=== PATIENT | male | born 1930 | race Caucasian/White ===

== ENCOUNTER 2016-07-26 14:45 | Inpatient (IN) | payer MEDICARE, MEDICAID ==
[~2016-07-26] VITALS: Ht 175.3 cm; Wt 88.9 kg
[~2016-07-26 14:45] MED LIST: ACET325T53 GT; BISA10SU12 RC; CALC-555 GT; CRAN425C GT; DOXA1TAB GT; GUAI-965 GT; MAGN400O4 GT; MULT237L4 GT; NA P133E RC; QUET25TA GT; RIVA20TA GT; SIMV20TA2 GT; SULF1TAB48 PO; VALP250S12 GT
[2016-07-26] MEDS ORDERED: ALBU2.5V38 IH (15:31)
[2016-07-26] MEDS ORDERED: LACT-209 PO (15:31)
[2016-07-26 15:50] LABS: CREATININE 0.7 mg/dL (0.6-1.3); POTASSIUM 4.2 mmol/L (3.5-5.1)
[2016-07-26 15:52] LABS: BASOPHILS % (AUTO) 0.4 % (0.0-2.0); EOSINOPHILS # (AUTO) 0.1 K/uL (0.0-0.7); EOSINOPHILS % (AUTO) 0.5 % (0.0-7.0); HEMOGLOBIN 12.8 G/DL (14.0-18.0); LYMPHOCYTES # (AUTO) 1.1 K/UL (0.8-4.8); MEAN CORPUSCULAR HEMOGLOBIN 31.5 UUG (27.0-31.0); MEAN CORPUSCULAR HGB CONC 33 g/dL (32.0-37.0); MEAN CORPUSCULAR VOLUME 95.7 FL (82.0-92.0); MONOCYTES # (AUTO) 1.5 K/UL (0.1-1.30); NEUTROPHILS % (AUTO) 75.1 % (38.5-71.5); PLATELET COUNT (AUTO) 182 K/UL (150-450); RED BLOOD CELL COUNT(AUTO) 4.07 MIL/UL (4.7-6.1); WHITE BLOOD COUNT (AUTO) 10.7 K/UL (4.0-11.2)
[2016-07-26] MEDS ORDERED: IMIPENEM/CILASTATIN SODIUM 500 MG in IV NORMAL SALINE 100 ML IV ONE (16:00)
[2016-07-26 16:02] LABS: BILIRUBIN,DIRECT 0.1 mg/dL (0.0-0.2); BILIRUBIN,TOTAL 0.6 mg/dL (0.2-1.0); TOTAL PROTEIN, SERUM 6.9 g/dL (6.4-8.2)
[2016-07-26] MEDS ORDERED: ALBUTEROL SULFATE 2.5 MG/3 ML NEBU NEB ONE (16:15)
[2016-07-26] MEDS ORDERED: IPRATROPIUM BROMIDE 0.5 MG/2.5 ML NEBU NEB ONE (16:15)
[2016-07-26] MEDS ORDERED: IPRATROPIUM BROMIDE 0.5 MG/2.5 ML NEBU ONE (16:26)
[2016-07-26] MEDS ORDERED: ALBUTEROL SULFATE 2.5 MG/ 0.5 ML NEBU ONE (16:27)
[2016-07-26] MEDS ORDERED: MEROPENEM 500 MG in IV NORMAL SALINE 100 ML IV ONE (16:30)
[2016-07-26] MEDS ORDERED: MEROPENEM 500 MG VIAL IV ONE (16:35)
[2016-07-26 17:27] LABS: *BILIRUBIN,URIN NEGATIVE (NEGATIVE); *BLOOD, URINE 2+ (NEGATIVE); *CLARITY,URINE CLOUDY (CLEAR); *COLOR,URINE YELLOW (YELLOW); *KETONES,URINE NEGATIVE (NEGATIVE); LEUKOCYTE ESTERASE ,URINE 3+ (NEGATIVE); NITRITE, URINE NEGATIVE (NEGATIVE); PH,URINE 7.5 (5.0-8.0); UGLUCOSE NEGATIVE (NEGATIVE)
[2016-07-26 17:44] LABS: *PROTEIN,URINE 3+ (NEGATIVE)
[2016-07-26 17:47] VITALS: BP 115/77
[2016-07-26 17:47] LABS: BACTERIA,URINE MA /HPF (NONE SEEN); RBC,URINE 80-100 /HPF (0-3); SQUAMOUS EPITHELIAL CELL,UR FEW /HPF (NONE SEEN); WBC,URINE TNTC /HPF (0-3)
[2016-07-26 17:48] LABS: TRIPLE PHOSPHATE CRYSTAL,UR MODERATE /HPF (NONE SEEN)
[2016-07-26] MEDS ORDERED: Z GUARD REMEDY PASTE 57 GM TUBE TOP PRN (19:00)
--- NOTE | 2016-07-26 19:00 | NUR ---
Report was received by DARRIAN Govea. No s/s of distress noted. V/S WNL. Called Dr. Rodrigues for order, did not call back. Iv intact. Patient came with a F/C, urine and yellow. G-tube on place. Report given to DARRIAN Baxter.
[2016-07-26 20:00] VITALS: BP 131/74
--- NOTE | 2016-07-26 20:00 | NUR ---
RECEIVED PATIENT NON VERBAL,LETHARGIC,TEMP 98.8, SPO2 96% ON O2 2 L/M VIA N/C,SR ON TELE RATE 85,PATIENT CONGESTED, COUGHING PRODUCTIVELY,SUCTION, ORAL CARE GIVEN, PATIENT RECEIVED BREATHING TX AND MERREM IV ABX. INFORMED DURING SHIFT REPORT THAT SEPSIS PROTOCOL WAS NOT NEEDED TO BE INITIATED IN ER. NOTIFIED DR. SWAN THAT PATIENT DID NOT RECEIVE ANY IVF IN ER. RECEIVED NEW ORDER FOR PATIENT TO START NS @50 CC/HR. ALL NEEDS ATTENDED. WILL CONTINUE TO MONITOR.
[2016-07-26] MEDS: IV NS 1000 ML 1,000 ML IV PRN (21:19)
[2016-07-26] MEDS: MEROPENEM 0.5 G in IV NORMAL SALINE 50 ML IV SCH (22:14)
[2016-07-27] VITALS (7 sets, daily range): BP systolic 97–125; BP diastolic 48–78
[2016-07-27] MEDS: IPRATROPIUM BROMIDE 0.5 MG/2.5 ML NEBU NEB SCH ×5 (00:01→19:23)
[2016-07-27] MEDS: ALBUTEROL SULFATE 2.5 MG/ 0.5 ML NEBU NEB SCH ×5 (00:05→19:23)
[2016-07-27] MEDS ORDERED: ALBUTEROL SULFATE 2.5 MG/3 ML NEBU ONE (00:08)
[2016-07-27] MEDS ORDERED: IPRATROPIUM BROMIDE 0.5 MG/2.5 ML NEBU ONE (00:09)
[2016-07-27] MEDS ORDERED: ACETAMINOPHEN 325 MG TABLET ONE (00:11)
[2016-07-27] MEDS ORDERED: ACETAMINOPHEN 650 MG/20.3 ML LIQUID UDC ONE (00:16)
--- NOTE | 2016-07-27 00:45 | NUR ---
TEMP ELEVATED 101,BP 125/78,HEART RATE 78 BPM NSR,TYLENOL 650 MG LIQUID GIVEN VIA G TUBE.COOLING MEASURE PROVIDED,TURN AND REPOSITION,MARS CATHETER DRAINAGE ADEQUATE URINE OUT PUT,BREATHING TREATMENT GIVEN BY R.T.WITH GOOD RESULT.
[2016-07-27] MEDS: ACETAMINOPHEN 650 MG/20.3 ML LIQUID UDC GT PRN ×2 (00:51→13:35)
[2016-07-27] MEDS ORDERED: IPRATROPIUM BROMIDE 0.5 MG/2.5 ML NEBU NEB SCH (01:30)
[2016-07-27] MEDS ORDERED: ALBUTEROL SULFATE 2.5 MG/ 0.5 ML NEBU NEB SCH (01:30)
--- NOTE | 2016-07-27 02:00 | NUR ---
TEMP 98.8,PATIENT SLEEP INTERMITTENTLY,CONTINUE CLOSELY MONITOR.
--- NOTE | 2016-07-27 06:00 | NUR ---
NO ACUTE DISTRESS NOTED, PATIENT MORE ALERT,VERBALLY RESPONSE. FOLLOW SIMPLE INSTRUCTIONS,SR ON MONITOR,SPONGE BATH GIVEN PATIENT APPEARS COMFORTABLE.
[2016-07-27] MEDS: MEROPENEM 0.5 G in IV NORMAL SALINE 50 ML IV SCH ×3 (06:02→21:27)
[2016-07-27 07:51] LABS: BILIRUBIN,TOTAL 0.6 mg/dL (0.2-1.0); CREATININE 0.7 mg/dL (0.6-1.3); MAGNESIUM 2.1 mg/dL (1.8-2.4); PHOSPHOROUS 2.9 mg/dL (2.5-4.9)
[2016-07-27 07:53] LABS: BASOPHILS % (AUTO) 0.4 % (0.0-2.0); EOSINOPHILS # (AUTO) 0.1 K/uL (0.0-0.7); EOSINOPHILS % (AUTO) 1.1 % (0.0-7.0); HEMOGLOBIN 11.5 G/DL (14.0-18.0); LYMPHOCYTES # (AUTO) 1.1 K/UL (0.8-4.8); LYMPHOCYTES % (AUTO) 9.5 % (20.5-51.5); MEAN CORPUSCULAR HEMOGLOBIN 31.9 UUG (27.0-31.0); MEAN CORPUSCULAR HGB CONC 33 g/dL (32.0-37.0); MEAN CORPUSCULAR VOLUME 95.7 FL (82.0-92.0); MONOCYTES # (AUTO) 1.4 K/UL (0.1-1.30); MONOCYTES % (AUTO) 11.9 % (0.0-11.0); NEUTROPHILS # (AUTO) 9.2 K/UL (1.8-8.9); NEUTROPHILS % (AUTO) 77.1 % (38.5-71.5); PLATELET COUNT (AUTO) 175 K/UL (150-450); WHITE BLOOD COUNT (AUTO) 11.8 K/UL (4.0-11.2)
[2016-07-27 07:57] LABS: HEMATOCRIT 34.6 % (40-50); RED BLOOD CELL COUNT(AUTO) 3.61 MIL/UL (4.7-6.1)
--- NOTE | 2016-07-27 08:00 | NUR ---
awake, oriented to self only, follows commands, on 2l/nc 02, no distress noted, Tele SR 80's, GT in place- checked residual- none obtained, tube feeding infusing at 65 ml/hr, kept head of bed elevated at all times, aspiration precautions observed, respiratory therapist here for HHN treatment, repositioned to ride side with heels off loaded with pillows, no redness noted. left ear lobe with dark area- mepilex foam dsg applied, fall prec. observed, bed alarm on
[2016-07-27] MEDS ORDERED: GUAIFENESIN/DEXTROMETHORPHAN 5 ML UDC GT PRN (08:45)
[2016-07-27] MEDS ORDERED: ACETAMINOPHEN 325 MG TABLET GT PRN (08:45)
[2016-07-27] MEDS ORDERED: MAGNESIUM HYDROXIDE 30 ML LIQUID UDC GT PRN (08:45)
[2016-07-27] MEDS ORDERED: BISACODYL 10 MG SUPP.RECT RC PRN (08:45)
[2016-07-27] MEDS ORDERED: FLEET ENEMA 133 ML BOTTLE RC PRN (08:45)
[2016-07-27] MEDS: QUETIAPINE FUMARATE 25 MG TABLET GT SCH ×3 (09:18→21:25)
[2016-07-27] MEDS: CALCIUM CARB/VITAMIN D 500MG-200UNITS TABLET GT SCH (09:19)
[2016-07-27] MEDS: MULTIVIT, IRON, MIN NO. 8, FA TABLET GT SCH (09:19)
[2016-07-27] MEDS: VALPROIC ACID 250 MG/5 ML LIQUID UDC GT SCH ×2 (13:26→21:25)
--- NOTE | 2016-07-27 13:38 | NUR ---
moaning- states has pain but unable to scale- medicated with [id number] mg via GT- checked residual- none obtained
--- NOTE | 2016-07-27 14:30 | NUR ---
calm and resting, no distress noted, tolerating tube fdg well, repositioned q 2h with heels off loaded with pillows, kept clean and dry, wound on buttocks done this am
[2016-07-27] MEDS: RIVAROXABAN 10 MG TABLET GT SCH (17:04)
[2016-07-27] MEDS: IV NS 1000 ML 1,000 ML IV PRN (18:33)
[2016-07-27] MEDS: FIBERSOURCE HN 1000ML LIQUID GT PRN (18:35)
--- NOTE | 2016-07-27 18:47 | NUR ---
no distress noted, tolerating tube fdg well, no residual noted this shift, no diarrhea, no n/v, aspiration precaution observed, head of bed elevated at all times, all needs attended and met, bed alarm on, repositioned q 2h with heels off loaded with pillows at all times, no redness noted on both heels
--- NOTE | 2016-07-27 20:00 | NUR ---
PATIENT RESTING WELL, NO ACUTE DISTRESS,AFEBRILE,NSR ON TELE MONITOR ,BREATHING TREATMENT AND SUCTION GIVEN BY R.T.,TUBE FEEDING STOP FROM 1900 UNTIL 2300 ,NO RESIDUAL,PATIENT ON 1 ST STEP AIR MATTRESS, TURN AND REPOSITION Q 2H,HEELS OFF LOADING ,HOB ELEVATED,CONTINUE O2 2L/M, O2 SAT 96%.
[2016-07-27] MEDS: SIMVASTATIN 20 MG TABLET GT SCH (21:25)
[2016-07-28 00:05] VITALS: BP 100/55
[2016-07-28] MEDS: ALBUTEROL SULFATE 2.5 MG/ 0.5 ML NEBU NEB SCH ×4 (00:30→19:48)
[2016-07-28] MEDS: IPRATROPIUM BROMIDE 0.5 MG/2.5 ML NEBU NEB SCH ×4 (00:30→19:48)
--- NOTE | 2016-07-28 00:30 | NUR ---
BREATHING TREATMENT AND SUCTION BY R.T.,NO DISTRESS NOTED.
[2016-07-28 04:00] VITALS: BP 105/56
[2016-07-28] MEDS: MEROPENEM 0.5 G in IV NORMAL SALINE 50 ML IV SCH ×3 (06:01→22:30)
--- NOTE | 2016-07-28 06:58 | NUR ---
PATIENT SLEEP WELL, BP STABLE AND WNL,SR,SB ON TELEMONITOR,ADEQUATE URINE OUT PUT,TOLERATED G TUBE FEEDING WELL,NO RESIDUAL.
[2016-07-28 08:00] VITALS: BP 99/54
--- NOTE | 2016-07-28 08:00 | NUR ---
awake alert, oriented to self, follows simple commands, head of bed elevated, on 3l/nc, tele sr 60's,has occasional cough, suctioned orally of thin whitish phlegm, oral care given, tube feeding infusing at 65ml/hr, no residual noted, aspiration precautions observed, repositioned with heels offloaded with pillows, no redness on heels noted, needs attended.
[2016-07-28] MEDS: VALPROIC ACID 250 MG/5 ML LIQUID UDC GT SCH ×2 (08:41→21:03)
[2016-07-28] MEDS: CALCIUM CARB/VITAMIN D 500MG-200UNITS TABLET GT SCH (08:41)
[2016-07-28] MEDS: MULTIVIT, IRON, MIN NO. 8, FA TABLET GT SCH (08:41)
[2016-07-28] MEDS: QUETIAPINE FUMARATE 25 MG TABLET GT SCH ×3 (08:42→21:04)
[2016-07-28] MEDS ORDERED: DOXAZOSIN 1 MG TABLET GT SCH (09:00)
--- NOTE | 2016-07-28 10:00 | NUR ---
resting in bed, calm, GT site red and with hard area around the site, no drainage noted, cleansed with NS and pat dry, new dsg applied, Abdomen soft, no distention noted, kept clean and dry, no BM, no n/v, tolerating tube fdg
[2016-07-28 11:47] VITALS: BP 105/57
--- NOTE | 2016-07-28 12:20 | NUR ---
Dr Colbert here- informed of the redness and hard area at GT site
--- NOTE | 2016-07-28 13:00 | NUR ---
downgraded to tele status
[2016-07-28] MEDS: IV NS 1000 ML 1,000 ML IV PRN (15:43)
[2016-07-28] MEDS: FIBERSOURCE HN 1000ML LIQUID GT PRN (15:44)
[2016-07-28 16:13] VITALS: BP 106/69
[2016-07-28] MEDS: RIVAROXABAN 10 MG TABLET GT SCH (18:14)
--- NOTE | 2016-07-28 20:00 | NUR ---
PATIENT AWAKE, ALERT,CONFUSED,VERBALLY RESPONSIVE,VITAL SIGNS STABLE AND WNL, ON O2 2L/M VIA N/C NO S/S OF PAIN,BREATHING TREATMENT AND SUCTION PER RT.SR ON MONITOR,ADEQUATE URINE OUT PUT,CONTINUE CLOSELY MONITOR,BED ALARM ON,SAFETY PRECAUTIONS.
[2016-07-28] MEDS: SIMVASTATIN 20 MG TABLET GT SCH (21:05)
--- NOTE | 2016-07-28 22:30 | NUR ---
TRANSFER CARE TO [facility],REPORT GIVEN.
--- NOTE | 2016-07-28 23:00 | NUR ---
RECEIVED REPORT FROM DARRIAN ESCOBAR. PT IN BED RESTING WITH EYES CLOSED. NO ACUTE DISTRESS NOTED. EVEN AND NONLABORED BREATHING OBSERVED, ON 3.5L O2 VIA NC. IV INTACT, IVF INFUSING ORDERED. REPOSITIONED FOR COMFORT. GT-FEEDING RESUMED AT 65CC/HR, NO RESIDUAL AT THIS TIME. WILL CONTINUE PLAN OF CARE. WILL CONTINUE MONITORING.
[2016-07-29] VITALS: BP 98/54
[2016-07-29] MEDS: ALBUTEROL SULFATE 2.5 MG/ 0.5 ML NEBU NEB SCH ×4 (00:30→19:51)
[2016-07-29] MEDS: IPRATROPIUM BROMIDE 0.5 MG/2.5 ML NEBU NEB SCH ×4 (00:31→19:51)
[2016-07-29 04:00] VITALS: BP 119/66
[2016-07-29] MEDS: MEROPENEM 0.5 G in IV NORMAL SALINE 50 ML IV SCH ×3 (05:29→22:00)
--- NOTE | 2016-07-29 06:35 | NUR ---
END OF SHIFT NOTE: PT SLEPT WELL. NO ACUTE DISTRESS PER SHIFT. SUCTIONED PRN WITH THIN WHITE PHLEMG, AND REMAINS ON SCHEDULED BREATHING TX. NO S/S OF PAIN OR UNEASINESS OBSERVED. ON 3L O2 VIA NC WITH SAT WNL. GT FEEDING INFUSING ORDERED, TOLERATING WELL. NO RESIDUAL THIS AM. ON TELE, SR ,SINUS EMILEE ON THE MONITOR, HR-58. ALL NEEDS MET. KEPT CLEAN AND DRY. CALL LIGHT IN REACH AND SAFETY MAINTAINED.
[2016-07-29 07:41] LABS: BILIRUBIN,TOTAL 0.4 mg/dL (0.2-1.0); CREATININE 0.7 mg/dL (0.6-1.3); MAGNESIUM 2.1 mg/dL (1.8-2.4); PHOSPHOROUS 3.3 mg/dL (2.5-4.9); POTASSIUM 4.2 mmol/L (3.5-5.1); TOTAL PROTEIN, SERUM 6.3 g/dL (6.4-8.2)
[2016-07-29 08:02] LABS: BASOPHILS # (AUTO) 0.1 K/uL (0.0-8.0); BASOPHILS % (AUTO) 0.6 % (0.0-2.0); EOSINOPHILS # (AUTO) 0.5 K/uL (0.0-0.7); EOSINOPHILS % (AUTO) 5.6 % (0.0-7.0); HEMATOCRIT 32.7 % (40-50); HEMOGLOBIN 11.6 G/DL (14.0-18.0); LYMPHOCYTES # (AUTO) 1.5 K/UL (0.8-4.8); MEAN CORPUSCULAR HEMOGLOBIN 34.2 UUG (27.0-31.0); MEAN CORPUSCULAR HGB CONC 35 g/dL (32.0-37.0); MEAN CORPUSCULAR VOLUME 96.9 FL (82.0-92.0); MONOCYTES % (AUTO) 11.2 % (0.0-11.0); NEUTROPHILS # (AUTO) 5.8 K/UL (1.8-8.9); NEUTROPHILS % (AUTO) 65.6 % (38.5-71.5); PLATELET COUNT (AUTO) 207 K/UL (150-450); RED BLOOD CELL COUNT(AUTO) 3.38 MIL/UL (4.7-6.1); WHITE BLOOD COUNT (AUTO) 8.9 K/UL (4.0-11.2)
[2016-07-29] MEDS: CALCIUM CARB/VITAMIN D 500MG-200UNITS TABLET GT SCH (09:51)
[2016-07-29] MEDS: MULTIVIT, IRON, MIN NO. 8, FA TABLET GT SCH (09:51)
[2016-07-29] MEDS: QUETIAPINE FUMARATE 25 MG TABLET GT SCH ×3 (09:51→21:59)
[2016-07-29] MEDS: VALPROIC ACID 250 MG/5 ML LIQUID UDC GT SCH ×2 (09:51→21:59)
[2016-07-29 11:02] VITALS: BP 111/57
[2016-07-29 15:05] VITALS: BP 116/64
[2016-07-29] MEDS: RIVAROXABAN 10 MG TABLET GT SCH (17:13)
[2016-07-29] MEDS: FIBERSOURCE HN 1000ML LIQUID GT PRN (17:20)
[2016-07-29] MEDS: IV NS 1000 ML 1,000 ML IV PRN (18:38)
--- NOTE | 2016-07-29 19:45 | NUR ---
PT IN BED RESTING, AWAKENS UPON TOUCH. NO ACUTE DISTRESS NOTED. ON GT-FEEDING, WITH NO RESIDUAL AT THIS TIME. REPOSITIONED FOR COMFORT. F/C IN PLACE. WILL CONTINUE TO MONITOR.
[2016-07-29 20:17] VITALS: BP 118/66
[2016-07-29] MEDS: SIMVASTATIN 20 MG TABLET GT SCH (21:59)
[2016-07-30 00:04] VITALS: BP 102/51
[2016-07-30] MEDS: ALBUTEROL SULFATE 2.5 MG/ 0.5 ML NEBU NEB SCH ×4 (02:55→19:22)
[2016-07-30] MEDS: IPRATROPIUM BROMIDE 0.5 MG/2.5 ML NEBU NEB SCH ×4 (02:55→19:22)
[2016-07-30 04:00] VITALS: BP 104/55
[2016-07-30] MEDS: MEROPENEM 0.5 G in IV NORMAL SALINE 50 ML IV SCH ×3 (05:26→21:16)
--- NOTE | 2016-07-30 05:35 | NUR ---
Pt slept well per shift. no acute distress noted. gt feeding off from 7pm to 11pm, restarted at 11pm. Pt tolerating well, no residual this am. breathing tx by RT, and suctioned prn. VS stable. No sob noted. Good urine output. On tele, sinus yousuf on the monitor, hr- 55. All safety needs met. continue plan of care.
[2016-07-30] MEDS: MULTIVIT, IRON, MIN NO. 8, FA TABLET GT SCH (08:34)
[2016-07-30] MEDS: CALCIUM CARB/VITAMIN D 500MG-200UNITS TABLET GT SCH (08:34)
[2016-07-30] MEDS: QUETIAPINE FUMARATE 25 MG TABLET GT SCH ×3 (08:34→21:02)
[2016-07-30] MEDS: VALPROIC ACID 250 MG/5 ML LIQUID UDC GT SCH ×2 (08:34→21:02)
--- NOTE | 2016-07-30 08:53 | NUR ---
PT SLEEPING IN BED, AROUSES TO NAME, IN NO ACUTE DISTRESS, TUBE FEEDING INFUSING WELL. BREATHING TREATMENT AND SUCTIONED BY RT THIS AM, ALL MORNING MEDICATION GIVEN, ALL SAFETY AND COMFORT MEASURES ATTENDED TO, CALL LIGHT IN REACH WILL CONTINUE TO MONITOR.
[2016-07-30 11:08] VITALS: BP 109/62
--- NOTE | 2016-07-30 11:36 | NUR ---
WOUND CARE NURSE CONSULTED PT
--- NOTE | 2016-07-30 12:08 | NUR ---
WOUND CARE CONSULT: RECEIVED REQUEST FOR WOUND CONSULT FROM [facility]. PER NURSING STAFF, DR RIVERA TO SEE PT FOR SURGICAL CONSULT ON G TUBE SITE ( REDNESS) AND LEFT EAR LESION. PT NOTED TO HAVE RASH TO BUTTOCKS WITH STAGE II ULCERS TO BILATERAL BUTTOCKS, PRESENT ON ADMISSION. PT ON FIRST STEP MATTRESS. ALL SKIN PROTECTION AND WOUND RECOMMENDATIONS DISCUSSED WITH NURSING STAFF. IN AGREEMENT WITH PLAN OF CARE. Addendum: 07/30/16 at 1210 by CLIFFORD VALLADARES RN Amended: Links added.
[2016-07-30] MEDS: CLOTRIMAZOLE 1% CREAM 30 GM TUBE TOP SCH ×2 (12:22→17:17)
[2016-07-30] MEDS: FIBERSOURCE HN 1000ML LIQUID GT PRN (14:38)
[2016-07-30] MEDS: IV NS 1000 ML 1,000 ML IV PRN (14:45)
[2016-07-30 15:04] VITALS: BP 116/74
[2016-07-30] MEDS: RIVAROXABAN 10 MG TABLET GT SCH (17:16)
--- NOTE | 2016-07-30 18:33 | NUR ---
no changes noted throughout shift, call light in reach
[2016-07-30 20:00] VITALS: BP 122/73
[2016-07-30] MEDS: SIMVASTATIN 20 MG TABLET GT SCH (21:02)
[2016-07-31] MEDS: ALBUTEROL SULFATE 2.5 MG/ 0.5 ML NEBU NEB SCH ×4 (00:41→19:06)
[2016-07-31] MEDS: IPRATROPIUM BROMIDE 0.5 MG/2.5 ML NEBU NEB SCH ×4 (00:41→19:06)
[2016-07-31 05:00] VITALS: BP 113/64
--- NOTE | 2016-07-31 06:00 | NUR ---
Patient slept well, in no acute distress, no SOB, remains afebrile. IVF running, no infiltration noted. IV antibiotic administered as ordered, no adverse reaction noted. Patient tolerates GTF, HOB elevated, flushed per protocol. Nobles cath patent, urine summer colored. Patient kept clean/dry. Bed alarm on. Will continue plan of care and monitor
[2016-07-31] MEDS: MEROPENEM 0.5 G in IV NORMAL SALINE 50 ML IV SCH ×3 (06:10→21:08)
[2016-07-31] MEDS: IV NS 1000 ML 1,000 ML IV PRN (06:15)
--- NOTE | 2016-07-31 07:20 | NUR ---
RECEIVED PATIENT FROM RN IMMUNOLOGY, SAFETY CHECK, BED IN LOW POSITION, SIDE RAILS UP X2
[2016-07-31] MEDS ORDERED: AMOX-430 PO (08:33)
[2016-07-31] MEDS: MULTIVIT, IRON, MIN NO. 8, FA TABLET GT SCH (09:30)
[2016-07-31] MEDS: CALCIUM CARB/VITAMIN D 500MG-200UNITS TABLET GT SCH (09:30)
[2016-07-31] MEDS: QUETIAPINE FUMARATE 25 MG TABLET GT SCH ×3 (09:32→21:09)
[2016-07-31] MEDS: VALPROIC ACID 250 MG/5 ML LIQUID UDC GT SCH ×2 (09:33→21:10)
[2016-07-31] MEDS: CLOTRIMAZOLE 1% CREAM 30 GM TUBE TOP SCH ×2 (09:34→17:11)
[2016-07-31 12:06] VITALS: BP 107/54
--- NOTE | 2016-07-31 12:30 | NUR ---
PATIENT SEEN BY DR COLLADO, EVALUATION OF GASTRIC TUBE SEE NOTES ON CONSULT
[2016-07-31 16:09] VITALS: BP 111/58
[2016-07-31] MEDS: RIVAROXABAN 10 MG TABLET GT SCH (18:00)
--- NOTE | 2016-07-31 18:52 | NUR ---
PATIENT IN STABLE CONDITION, OCCASIONAL PRODUCTIVE COUGH, AND POSSIBLE TRANSFER TO SNF IF CLEARED BY DR MOTA. CALL IF ANY NEWS ON TRANSFER
[2016-07-31 20:23] VITALS: BP 127/64
[2016-07-31] MEDS: SIMVASTATIN 20 MG TABLET GT SCH (21:08)
[2016-08-01] MEDS: IPRATROPIUM BROMIDE 0.5 MG/2.5 ML NEBU NEB SCH ×4 (00:32→19:35)
[2016-08-01] MEDS: ALBUTEROL SULFATE 2.5 MG/ 0.5 ML NEBU NEB SCH ×4 (00:33→19:35)
[2016-08-01] MEDS: IV NS 1000 ML 1,000 ML IV PRN ×2 (02:29→23:02)
--- NOTE | 2016-08-01 04:10 | NUR ---
Patient seen by Dr. Jatinder Westbrook. Please see consultation notes.
[2016-08-01] MEDS: MEROPENEM 0.5 G in IV NORMAL SALINE 50 ML IV SCH (05:03)
[2016-08-01 05:11] VITALS: BP 115/58
--- NOTE | 2016-08-01 05:36 | NUR ---
Patient slept well, in no acute distress, no SOB. Antibiotics administered as ordered, no adverse reaction noted. Nobles cath intact, patent, draining yellow/light orange urine. IVF patent, running with no infiltration noted. GT placement checked via auscultation, no residual noted, flushed per policy. Patient tolerates GTF, no nausea/vomiting/diarrhea noted, HOB elevated, aspiration precaution. Oral care provided. Wound treatment done on sacrum, patient kept clean/dry, repositioned for comfort, bilateral heels offloaded. Will continue plan of care and monitor.
--- NOTE | 2016-08-01 08:45 | NUR ---
RECEIVED REPORT FROM CHARGE NURSE. SAFETY CHECK, BED IN LOW POSITION, SIDE RAILS UP X2.
[2016-08-01] MEDS: VALPROIC ACID 250 MG/5 ML LIQUID UDC GT SCH ×2 (09:33→21:17)
[2016-08-01] MEDS: MULTIVIT, IRON, MIN NO. 8, FA TABLET GT SCH (09:34)
[2016-08-01] MEDS: QUETIAPINE FUMARATE 25 MG TABLET GT SCH ×3 (09:34→21:18)
[2016-08-01] MEDS: CALCIUM CARB/VITAMIN D 500MG-200UNITS TABLET GT SCH (09:34)
[2016-08-01] MEDS: CLOTRIMAZOLE 1% CREAM 30 GM TUBE TOP SCH ×2 (09:35→17:00)
[2016-08-01 11:58] VITALS: BP 117/66
--- NOTE | 2016-08-01 12:00 | NUR ---
PATIENT EVALUATED WITH PHYSICAL THERAPY TOLERATED WELL.
[2016-08-01 16:10] VITALS: BP 105/56
[2016-08-01] MEDS: RIVAROXABAN 10 MG TABLET GT SCH (18:27)
[2016-08-01 19:00] VITALS: BP 123/81
--- NOTE | 2016-08-01 19:06 | NUR ---
PATIENT HAS BEEN CALM ALL DAY, NO EVIDENCE OF DISTRESS, PATIENT MUST HAVE FEEDING STOPPED AT MIDNIGHT FOR EGD IN THE AM.
--- NOTE | 2016-08-01 21:00 | NUR ---
SPOKE TO LUISA AND EGD WITH PEG PLACEMENT TELEPHONE CONSENT WAS NOT OBTAINED THIS TIME LUISA IS HAVING ISSUES/CONCERN IF PATIENT'S INSURANCE WILL PAY. WILL SPEAK TO MD REGARDING THIS MATTER
[2016-08-01] MEDS: SIMVASTATIN 20 MG TABLET GT SCH (21:17)
--- NOTE | 2016-08-01 21:34 | NUR ---
SPOKE TO DR. SIN AND DISCUSSED WITH HIM PATIENT'S CONCERN ABOUT INSURANCE ISSUES AND NECESSITY OF PROCEDURE EGD WITH PEG PLACEMENT PRIOR TO CONSENT SIGNING. GAVE PATIENT'S LUISA'S PHONE NUMBER TO DISCUSS BETWEEN THEM. DR SIN SAID THAT WET CLEANER MACHINE TO DISCUSS WITH INSURANCE ISSUES
--- NOTE | 2016-08-01 21:50 | NUR ---
SPOKE TO PATIENT'S AND SHE INDICATED THAT UNDER PATIENT'S CIRCUMSTANCES, PATIENT WILL GO BACK TO [facility] WITHOUT THE EGD WITH PEG PLACEMENT PROCEDURE AND EGD PROCEDURE STILL YET TO BE DETERMINE AFTER PATIENT'S DISCHARGE. INFORMED HER THAT PRIMARY MD TO DECIDE IF PATIENT WILL BE DISCHARGE TOMORROW Addendum: 08/01/16 at 2155 by ZORAIDA SANDY RN SHE STATED THAT PATIENT WILL GO BACK TO [facility] WHAT SHE AND DR SIN BOTH DISCUSSED OVER THE PHONE
[2016-08-02] MEDS: ALBUTEROL SULFATE 2.5 MG/ 0.5 ML NEBU NEB SCH ×3 (00:53→13:48)
[2016-08-02] MEDS: IPRATROPIUM BROMIDE 0.5 MG/2.5 ML NEBU NEB SCH ×3 (00:54→13:47)
[2016-08-02 04:00] VITALS: BP 103/59
[2016-08-02] MEDS: VALPROIC ACID 250 MG/5 ML LIQUID UDC GT SCH (09:32)
[2016-08-02] MEDS: CALCIUM CARB/VITAMIN D 500MG-200UNITS TABLET GT SCH (09:32)
[2016-08-02] MEDS: MULTIVIT, IRON, MIN NO. 8, FA TABLET GT SCH (09:32)
[2016-08-02] MEDS: CLOTRIMAZOLE 1% CREAM 30 GM TUBE TOP SCH (09:32)
[2016-08-02] MEDS: QUETIAPINE FUMARATE 25 MG TABLET GT SCH ×2 (09:32→14:09)
[2016-08-02 11:36] VITALS: BP 111/52
[2016-08-02 15:30] VITALS: BP 117/63
--- NOTE | 2016-08-02 16:00 | NUR ---
REPORT CALLED TO DORA AT [facility]. PT. DISCHARGED VIA AMBULANCE
== END 2016-08-02 16:00 | DRG 393 ==
LOC: ER 14:45 → TELE 17:09 → TELE-TD 20:30 → TELE 07-28 12:41 → MED 07-30 13:10
PROVIDERS: ADMIT Internal Medicine; ATTEND Internal Medicine
DX: K94.22 Gastrostomy infection (principal); A41.9 Sepsis, unspecified organism; N39.0 Urinary tract infection, site not specified; L03.311 Cellulitis of abdominal wall; N40.0 Benign prostatic hyperplasia without lower urinary tract symptoms; F03.90 Unspecified dementia, unspecified severity, without behavioral disturbance, psychotic disturbance, mood disturbance, and anxiety; I25.10 Atherosclerotic heart disease of native coronary artery without angina pectoris; F32.9 Major depressive disorder, single episode, unspecified; R13.10 Dysphagia, unspecified; K59.00 Constipation, unspecified; K21.9 Gastro-esophageal reflux disease without esophagitis; I10 Essential (primary) hypertension; E78.5 Hyperlipidemia, unspecified; E11.9 Type 2 diabetes mellitus without complications; Z86.711 Personal history of pulmonary embolism; D64.9 Anemia, unspecified; Z87.440 Personal history of urinary (tract) infections; F29 Unspecified psychosis not due to a substance or known physiological condition; Y83.3 Surgical operation with formation of external stoma as the cause of abnormal reaction of the patient, or of later complication, without mention of misadventure at the time of the procedure; Y73.3 Surgical instruments, materials and gastroenterology and urology devices (including sutures) associated with adverse incidents; Y92.129 Unspecified place in nursing home as the place of occurrence of the external cause; Z79.899 Other long term (current) drug therapy
CPT/HCPCS: 36415; 70030-TC; 71010; 76770; 80164; 83605; 83735; 84100; 85025; 87040; 87086; 93005; 94640; 94664; 97110; 97112; 97161; 97165; 97530; A4217; A4663; J0743; J2185; J3490; J3590; J7030; J7042

== ENCOUNTER 2016-08-19 10:50 | Emergency (ER) | payer MEDICARE, MEDICAID ==
[~2016-08-19] VITALS: Ht 180.3 cm; Wt 88.5 kg
[~2016-08-19 10:50] MED LIST changes: +ALBU2.5V38 IH; +AMOX-430 PO; -CRAN425C GT; +CRAN425C6 GT; +LACT-209 PO; -MAGN400O4 GT; +MAGN400O6 GT; -SULF1TAB48 PO; -VALP250S12 GT; +VALP250S17 GT
--- NOTE | 2016-08-19 11:17 | NUR ---
flushe the g-tube, running with no resistance, no leakage noticed at this time
--- NOTE | 2016-08-19 11:27 | NUR ---
dr. gordon talking to dr. byrd regarding the pt.
[2016-08-19 11:46] LABS: BASOPHILS # (AUTO) 0.1 K/uL (0.0-8.0); BASOPHILS % (AUTO) 0.9 % (0.0-2.0); EOSINOPHILS # (AUTO) 0.6 K/uL (0.0-0.7); EOSINOPHILS % (AUTO) 8.2 % (0.0-7.0); HEMATOCRIT 37.4 % (40-50); HEMOGLOBIN 12.2 G/DL (14.0-18.0); LYMPHOCYTES # (AUTO) 1.5 K/UL (0.8-4.8); LYMPHOCYTES % (AUTO) 20.3 % (20.5-51.5); MEAN CORPUSCULAR HEMOGLOBIN 31.5 UUG (27.0-31.0); MEAN CORPUSCULAR HGB CONC 33 g/dL (32.0-37.0); MONOCYTES # (AUTO) 0.8 K/UL (0.1-1.30); MONOCYTES % (AUTO) 11.8 % (0.0-11.0); NEUTROPHILS # (AUTO) 4.2 K/UL (1.8-8.9); NEUTROPHILS % (AUTO) 58.8 % (38.5-71.5); PLATELET COUNT (AUTO) 191 K/UL (150-450); RED BLOOD CELL COUNT(AUTO) 3.86 MIL/UL (4.7-6.1); WHITE BLOOD COUNT (AUTO) 7.2 K/UL (4.0-11.2)
[2016-08-19 11:58] LABS: CARBON DIOXIDE 25 mmol/L (21-32); CHLORIDE 104 mmol/L (98-107); CREATININE 0.6 mg/dL (0.6-1.3); GLUCOSE 94 mg/dL (74-106); POTASSIUM 4.4 mmol/L (3.5-5.1); UREA NITROGEN, BLOOD 13 mg/dL (7-18)
[2016-08-19 12:04] LABS: ALANINE AMINOTRANSFERASE 25 U/L (16-63); ALKALINE PHOSPHATASE 77 U/L (50-136); BILIRUBIN,TOTAL 0.4 mg/dL (0.2-1.0); TOTAL PROTEIN, SERUM 6.7 g/dL (6.4-8.2)
[2016-08-19 12:23] LABS: ASPARTATE AMINOTRANSFERASE 26 U/L (15-37)
[2016-08-19] MEDS ORDERED: DIATR MEGLU/DIATRIZOATE SODIUM 120 ML BOTTLE GT ONE (14:45)
[2016-08-19] MEDS ORDERED: DIATR MEGLU/DIATRIZOATE SODIUM 120 ML BOTTLE ONE (14:52)
--- NOTE | 2016-08-19 15:00 | NUR ---
DR. SIN AT BEDSIDE TO EVALUATE PT G-TUBE
--- NOTE | 2016-08-19 15:30 | NUR ---
REPLACED THE OLD G-TUBE WITH STANDARD BALLON STRAIGHT BOLSTER 22F. FLUSHED EASILY. PT TOLERATED WELL.
--- NOTE | 2016-08-19 16:27 | NUR ---
CALLED YANNICK TO TRANSFER PT BACK TO [facility].
--- NOTE | 2016-08-19 18:06 | NUR ---
CALLED [facility] AND GAVE REPORT. [facility] AT BEDSIDE TO TRANSFER THE PT. PT IN STABLE CONDITION. NO SIGN OF DISTRESS AT THIS TIME.
[2016-08-19 18:08] VITALS: BP 108/69
--- NOTE | 2016-08-19 18:09 | NUR ---
Patient discharged to home in stable conditon. Written and verbal after care instructions given TO ANMBULANCE CREW AND CALLED FOR REPORT.
== END 2016-08-19 18:11 | disposition home or self-care (01) ==
LOC: ER 10:50
DX: K94.23 Gastrostomy malfunction (principal); E78.5 Hyperlipidemia, unspecified; K21.9 Gastro-esophageal reflux disease without esophagitis; F32.9 Major depressive disorder, single episode, unspecified; I10 Essential (primary) hypertension; I25.2 Old myocardial infarction; Z86.711 Personal history of pulmonary embolism; Z79.01 Long term (current) use of anticoagulants
CPT/HCPCS: 36415; 71010; 74150; 76705; 85025; 93005; A4663; Q9963

== ENCOUNTER 2017-01-17 01:05 | Inpatient (IN) | payer MEDICARE, MEDICAID ==
[~2017-01-17] VITALS: Ht 182.9 cm; Wt 85.7 kg
--- NOTE | 2017-01-17 01:30 | NUR ---
Pt rodrigo from facility for evaluation for hematuria. Pt is non-verbal, awake, non responsive bed bound pt. Pt is incontinent of b/b, during pm care his caregiver noticed blood clots in his diaper. Pt placed on monitor, in ST. Pt resp even and unlabored. Obvious bright and dark blood coming from penis. Pt seen by Dr. Ledezma. IV established, labs drawn and sent.
[2017-01-17] MEDS ORDERED: DIATR MEGLU/DIATRIZOATE SODIUM 120 ML BOTTLE PO ONE (01:45)
--- NOTE | 2017-01-17 01:45 | NUR ---
Dr. Ledezma attempted to inject gastro- grafin into the penis through the meatus while having an xray taken to assess for uretheral trauma. Unable to visualize the uretheral opening, unsuccessful in fully injecting the contrast. Per Dr. Ledezma pt have meghann.
[2017-01-17 01:47] LABS: BASOPHILS # (AUTO) 0.2 K/uL (0.0-8.0); BASOPHILS % (AUTO) 1.3 % (0.0-2.0); EOSINOPHILS # (AUTO) 0.1 K/uL (0.0-0.7); EOSINOPHILS % (AUTO) 0.7 % (0.0-7.0); HEMATOCRIT 46.1 % (40-50); HEMOGLOBIN 15.5 G/DL (14.0-18.0); LYMPHOCYTES # (AUTO) 2.7 K/UL (0.8-4.8); LYMPHOCYTES % (AUTO) 17.3 % (20.5-51.5); MEAN CORPUSCULAR HEMOGLOBIN 32.8 UUG (27.0-31.0); MEAN CORPUSCULAR HGB CONC 34 g/dL (32.0-37.0); MEAN CORPUSCULAR VOLUME 97.2 FL (82.0-92.0); MONOCYTES # (AUTO) 1.4 K/UL (0.1-1.30); MONOCYTES % (AUTO) 8.9 % (0.0-11.0); NEUTROPHILS % (AUTO) 71.8 % (38.5-71.5); PLATELET COUNT (AUTO) 256 K/UL (150-450); RED BLOOD CELL COUNT(AUTO) 4.74 MIL/UL (4.7-6.1); WHITE BLOOD COUNT (AUTO) 15.4 K/UL (4.0-11.2)
[2017-01-17] MEDS ORDERED: DIATR MEGLU/DIATRIZOATE SODIUM 120 ML BOTTLE ONE (01:55)
[2017-01-17] MEDS ORDERED: NA P133E RC (01:59)
[2017-01-17] MEDS ORDERED: QUET25TA GT (01:59)
[2017-01-17] MEDS ORDERED: CALC500T51 GT (01:59)
[2017-01-17] MEDS ORDERED: IPRA0.2S6 NEB (01:59)
[2017-01-17] MEDS ORDERED: ACET200V5 INH (01:59)
[2017-01-17] MEDS ORDERED: DOXA2TAB GT (01:59)
[2017-01-17] MEDS ORDERED: RIVA20TA GT (01:59)
[2017-01-17] MEDS ORDERED: LIDOCAINE 2% (UROJET) 10 ML JELLY MM ONE ×2 (02:07→04:30)
--- NOTE | 2017-01-17 02:28 | NUR ---
DR AYALA SPEAKING WITH DR MATSON
[2017-01-17] MEDS ORDERED: HYDROMORPHONE 1 MG/1 ML DISP.SYRIN IV ONE ×2 (02:30→05:30)
[2017-01-17] MEDS ORDERED: ONDANSETRON IV *ER 4 MG/2 ML VIAL IV ONE (02:30)
--- NOTE | 2017-01-17 02:41 | NUR ---
After multiple attempts to cath unsuccessful. Dr. Ledezma notified. Dr. Abel (urology) called and will be coming into see pt. Urology cart at bedside. Pt medicated for discomfort, will monitor for effects of medication.
[2017-01-17 02:45] LABS: CARBON DIOXIDE 23 mmol/L (21-32); CHLORIDE 113 mmol/L (98-107); CREATININE 1.2 mg/dL (0.6-1.3); GLUCOSE 189 mg/dL (74-106); POTASSIUM 4.9 mmol/L (3.5-5.1); UREA NITROGEN, BLOOD 47 mg/dL (7-18)
[2017-01-17] MEDS ORDERED: ONDANSETRON 4 MG/2 ML VIAL ONE (02:48)
--- NOTE | 2017-01-17 02:48 | NUR ---
Dr. Abel at bedside
[2017-01-17] MEDS ORDERED: HYDROMORPHONE 2 MG/1 ML DISP.SYRIN ONE ×2 (02:49→05:45)
[2017-01-17 02:50] LABS: ALANINE AMINOTRANSFERASE 60 U/L (16-63); ALKALINE PHOSPHATASE 70 U/L (50-136); ASPARTATE AMINOTRANSFERASE 42 U/L (15-37); BILIRUBIN,DIRECT 0.1 mg/dL (0.0-0.2); BILIRUBIN,TOTAL 0.4 mg/dL (0.2-1.0); TOTAL PROTEIN, SERUM 7.5 g/dL (6.4-8.2)
[2017-01-17 03:24] LABS: *BILIRUBIN,URIN NEGATIVE (NEGATIVE); *BLOOD, URINE 3+ (NEGATIVE); *CLARITY,URINE TURBID (CLEAR); *COLOR,URINE RED (YELLOW); *KETONES,URINE TRACE (NEGATIVE); *PROTEIN,URINE 3+ (NEGATIVE); *UROBILINOGEN,URINE 0.2 E.U./dl (NORMAL); LEUKOCYTE ESTERASE ,URINE TRACE (NEGATIVE); NITRITE, URINE NEGATIVE (NEGATIVE); PH,URINE 7.5 (5.0-8.0); UGLUCOSE NEGATIVE (NEGATIVE)
--- NOTE | 2017-01-17 03:30 | NUR ---
Dr. Abel remains at bedside and conts pt bladder irrigation. Pt tolerating well, no obvious signs of distress.
[2017-01-17 03:35] LABS: BACTERIA,URINE MODERATE /HPF (NONE SEEN); RBC,URINE TNTC /HPF (0-3); SQUAMOUS EPITHELIAL CELL,UR NONE SEEN /HPF (NONE SEEN)
[2017-01-17] MEDS ORDERED: CEFTRIAXONE 1 G in IV DEXTROSE 5% 50 ML IV ONE (03:45)
[2017-01-17] MEDS ORDERED: IV NORMAL SALINE 1000 ML BAG IV ONE ×2 (03:45→05:30)
--- NOTE | 2017-01-17 03:45 | NUR ---
Report given to DARRIAN Horn whom did not want a full [facility] report. Sts she will review the pt's lab results and pt's medical history when pt arrives on the floor. RN was quick to finish report stating she had another pt she needed to care for with low blood pressure.
--- NOTE | 2017-01-17 03:54 | NUR ---
ABT infusion started, will monitor for any adverse reactions.
[2017-01-17] MEDS ORDERED: CEFTRIAXONE 1 G VIAL ONE (04:07)
--- NOTE | 2017-01-17 04:09 | NUR ---
A rectal/prostate exam completed by Dr. Abel and pt was digitaly disimpacted. Dr. Abel done at bedside. Pt set up for CBI at this time. Nobles draining freely to gravity. Pt cleaned and changed. Resting in position of comfort for self.
--- NOTE | 2017-01-17 04:26 | NUR ---
7 L normal saline used for cont. manual irrigation of in and out. CBI now infusing with the pt's second 2L irrigation bottle.
[2017-01-17] MEDS ORDERED: FLEET ENEMA 133 ML BOTTLE RC ONE (04:30)
--- NOTE | 2017-01-17 05:00 | NUR ---
Pt to CT via jyotsna
--- NOTE | 2017-01-17 05:06 | NUR ---
Second page to Ravi Ledezma
--- NOTE | 2017-01-17 05:37 | NUR ---
Pt returned from CT via gurney. Fluid bolus infusing freely to gravity. Pt medicated for discomfort, will monitor for effects of medication.
--- NOTE | 2017-01-17 05:41 | NUR ---
Third attempt to reach Dr. Rodrigues for Dr. Ledezma. Awaiting call back
--- NOTE | 2017-01-17 06:00 | NUR ---
Dr. Ledezma speaking with Dr. Rodrigues.
--- NOTE | 2017-01-17 06:07 | NUR ---
updated report given to DARRIAN Horn. Pt to be transfered to the floor once he returns from CT
--- NOTE | 2017-01-17 07:22 | NUR ---
Pt returned from CT via gurney. While in CT pt's CBI became clogged. Nobles manually agitated to clear it. CBI resumed. Report given to DARRIAN Jones. I relinquish care of pt at this time.
--- NOTE | 2017-01-17 07:51 | NUR ---
report was fiven to biology internship. pt was transfered to troom #[id number].
[2017-01-17] MEDS ORDERED: CEFTRIAXONE 1 G VIAL IM SCH (09:00)
--- NOTE | 2017-01-17 09:00 | NUR ---
Pt received from ER.Pt remains unresponsive.No s/s of pain,distress noted.SR on monitor.No SOB noted.GT intact,patent,clumped.3way catheter with bladder irrigation intact. at bedside to admit pt.
[2017-01-17 09:04] VITALS: BP 127/88
[2017-01-17] MEDS ORDERED: BISACODYL 10 MG SUPP.RECT RC PRN ×2 (09:45→14:45)
[2017-01-17] MEDS ORDERED: FLEET ENEMA 133 ML BOTTLE RC PRN ×2 (09:45→14:45)
[2017-01-17] MEDS ORDERED: ACETAMINOPHEN 325 MG TABLET GT PRN (09:45)
[2017-01-17] MEDS ORDERED: QUETIAPINE FUMARATE 25 MG TABLET GT PRN (09:45)
[2017-01-17] MEDS ORDERED: GUAIFENESIN/DEXTROMETHORPHAN 5 ML UDC GT PRN (10:15)
[2017-01-17] MEDS: IPRATROPIUM BROMIDE 0.5 MG/2.5 ML NEBU NEB SCH ×2 (13:32→19:33)
[2017-01-17] MEDS: ACETYLCYSTEINE 20% 800 MG/4 ML VIAL NEB SCH ×2 (13:32→19:34)
--- NOTE | 2017-01-17 14:00 | NUR ---
at bedside to see pt.
[2017-01-17 15:25] VITALS: BP 92/59
[2017-01-17] MEDS: DOXAZOSIN 2 MG TABLET GT SCH (16:14)
[2017-01-17] MEDS: IPRATROPIUM BROMIDE 0.5 MG/2.5 ML NEBU NEB PRN (19:34)
[2017-01-17 20:00] VITALS: BP 105/68
--- NOTE | 2017-01-17 20:00 | NUR ---
PATIENT LETHARGY NON VERBAL,TEMP 99.4, COOLING MEASURE PROVIDED,MOUTH CARE, HOB ELEVATED,CONTINUE BLADDER IRRIGATION WITH NSS,URINE PINKISH, FEW BLOOD CLOTS,URINE DRAINAGE FREELY.
[2017-01-17] MEDS: SIMVASTATIN 20 MG TABLET GT SCH (20:40)
[2017-01-17] MEDS: QUETIAPINE FUMARATE 25 MG TABLET GT SCH (20:40)
--- NOTE | 2017-01-18 00:15 | NUR ---
patient has moderate amount of hard stool after Dulcolax supp given by day shift rn, still has high fecal impaction, milk of mag 30 ml g tube given,tylenol g tube given for discomfort.SR on monitor.
[2017-01-18 00:28] VITALS: BP 116/65
[2017-01-18] MEDS: ACETAMINOPHEN 650 MG/20.3 ML LIQUID UDC GT PRN (00:45)
[2017-01-18] MEDS: MAGNESIUM HYDROXIDE 30 ML LIQUID UDC GT PRN (00:46)
[2017-01-18] MEDS: VALPROIC ACID 250 MG/5 ML LIQUID UDC GT SCH ×3 (00:46→17:33)
[2017-01-18] MEDS: POTASSIUM CHLORIDE 10 MEQ in IV 1/2NS 1000 ML 1,000 ML IV PRN ×2 (00:58→13:30)
[2017-01-18] MEDS: IPRATROPIUM BROMIDE 0.5 MG/2.5 ML NEBU NEB SCH ×4 (01:01→19:46)
[2017-01-18 04:20] VITALS: BP 112/69
[2017-01-18] MEDS: CEFTRIAXONE 1 G in IV DEXTROSE 5% 50 ML IV SCH (04:38)
--- NOTE | 2017-01-18 05:42 | NUR ---
continue CBI,3 ways zavaleta cath drainage clear ,very few blood clots noted,has large loose stool,patient appears relax/comfortable.SR on monitor,bp 112/69,no distress.turn and reposition,local wound and skin care given.
[2017-01-18 06:47] LABS: BASOPHILS % (AUTO) 0.2 % (0.0-2.0); EOSINOPHILS % (AUTO) 0.1 % (0.0-7.0); HEMATOCRIT 37.4 % (36.7-47.1); HEMOGLOBIN 11.7 g/dL (12.5-16.3); LYMPHOCYTES # (AUTO) 2.1 K/uL (20.0-40.0); LYMPHOCYTES % (AUTO) 12.4 % (20.5-51.5); MEAN CORPUSCULAR HEMOGLOBIN 31.6 uug (23.8-33.4); MEAN CORPUSCULAR HGB CONC 31 g/dL (32.5-36.3); MEAN CORPUSCULAR VOLUME 100.8 fL (73.0-96.2); MONOCYTES # (AUTO) 1.1 K/uL (2.0-10.0); MONOCYTES % (AUTO) 6.3 % (0.0-11.0); PLATELET COUNT (AUTO) 205 K/uL (152-348); RED BLOOD CELL COUNT(AUTO) 3.71 MIL/uL (4.06-5.63); WHITE BLOOD COUNT (AUTO) 17.3 K/uL (3.6-10.2)
[2017-01-18 07:52] LABS: ALANINE AMINOTRANSFERASE 34 U/L (16-63); ALKALINE PHOSPHATASE 58 U/L (50-136); ASPARTATE AMINOTRANSFERASE 19 U/L (15-37); BILIRUBIN,TOTAL 0.4 mg/dL (0.2-1.0); CARBON DIOXIDE 23 mmol/L (21-32); CHLORIDE 117 mmol/L (98-107); CREATININE 1.2 mg/dL (0.6-1.3); GLUCOSE 164 mg/dL (74-106); PHOSPHOROUS 3.3 mg/dL (2.5-4.9); POTASSIUM 4.8 mmol/L (3.5-5.1); TOTAL PROTEIN, SERUM 6.1 g/dL (6.4-8.2); UREA NITROGEN, BLOOD 48 mg/dL (7-18)
--- NOTE | 2017-01-18 08:00 | NUR ---
AWAKE CONFUSED /FORGETFUL NO PAIN OR SOB ON ASPIRATION AND FALL PRECAUTION 3 WAY F/C INPLACE WITH CONTINUE NS IRRIGATION URINE WAS MORE CLEAR LIGHT PK WITH SMALL CLOTS GT INPLACE FOR MEDICATION AND CONTINUE IVF ORDER BED ALARM ON AND CALL LIGHT IN REACH HOB UP AT ALL TIME
[2017-01-18] MEDS: ALBUTEROL SULFATE 1.25 MG/3 ML NEBU NEB PRN ×2 (08:52→15:58)
[2017-01-18] MEDS: ACETYLCYSTEINE 20% 800 MG/4 ML VIAL NEB SCH ×2 (08:52→15:58)
[2017-01-18] MEDS: DOXAZOSIN 2 MG TABLET GT SCH ×2 (09:00→17:00)
[2017-01-18] MEDS: CALCIUM CARBONATE 500 MG TABLET GT SCH (09:38)
--- NOTE | 2017-01-18 10:30 | NUR ---
GT SITE DSG CHANGE REPOSITION Q 2HR DR PAPPAS HERE SEE PATIENT AND LAB RESULT NEW ORDER IN CHART
[2017-01-18 11:50] VITALS: BP 104/57
--- NOTE | 2017-01-18 13:00 | NUR ---
DR RODRÍGUEZ SEE PATIENT URINE CLEAR LIGHT PK HAND IRRIGATION X1 UNTIL CLEAR SOME SMALL CLOTS OUT NO PAIN AND D/C CONTINUE BLADDER IRRIGATION
[2017-01-18 15:38] VITALS: BP 104/56
[2017-01-18] MEDS: FIBERSOURCE HN 1000ML LIQUID GT PRN (16:00)
--- NOTE | 2017-01-18 16:00 | NUR ---
START GT FEEDING ORDER JOVITA WELL NO N/V REPOSITION Q2 HR RT GIVEN TREATMENT JOVITA WELL IV START A NEW LINE ON RT HAND #22
[2017-01-18] MEDS: RIVAROXABAN 10 MG TABLET PO SCH (17:38)
--- NOTE | 2017-01-18 18:00 | NUR ---
STABLE HEMODYNAMIC STATUS NO ACUTE DISTRESS SAFETY MEASURE PROVIDED BED ALARM ON AND CALL LIGHT IN REACH
--- NOTE | 2017-01-18 19:00 | NUR ---
RECD PT IN BED, ON HIGH FOWLERS POSITION, APPEARS SLEEPING, SKIN WARM AND DRY,GT FEEDING INFUSING WELL AT DESIRED FLOW RATE,IV FLUIDS INFUSING W/O ANY PROBLEMS,3 WAY MARS IN PLACE AND DRAINING TO PINKISH URINE.NO CLOTS NOTED.
[2017-01-18 20:00] VITALS: BP 116/60
--- NOTE | 2017-01-18 20:13 | NUR ---
PT IS NON VERBAL, ORAL CARE DONE, KEPT WARM AND COMFORTABLE.
[2017-01-18] MEDS: SIMVASTATIN 20 MG TABLET GT SCH (20:51)
[2017-01-18] MEDS: Z GUARD REMEDY PASTE 57 GM TUBE TOP SCH (21:00)
[2017-01-18] MEDS: QUETIAPINE FUMARATE 25 MG TABLET GT SCH (21:00)
--- NOTE | 2017-01-18 22:14 | NUR ---
TELE READINGSINUS 65, RESTING FAIRLY WELL.
[2017-01-19 00:22] VITALS: BP 110/59
[2017-01-19] MEDS: IPRATROPIUM BROMIDE 0.5 MG/2.5 ML NEBU NEB SCH ×4 (00:31→19:21)
[2017-01-19] MEDS: ACETYLCYSTEINE 20% 800 MG/4 ML VIAL NEB SCH ×4 (00:31→23:04)
[2017-01-19] MEDS: CEFTRIAXONE 1 G in IV DEXTROSE 5% 50 ML IV SCH (04:43)
[2017-01-19 05:16] VITALS: BP 129/64
[2017-01-19 07:10] LABS: BASOPHILS % (AUTO) 0.4 % (0.0-2.0); EOSINOPHILS # (AUTO) 0.1 K/uL (0.0-0.7); EOSINOPHILS % (AUTO) 0.9 % (0.0-7.0); LYMPHOCYTES # (AUTO) 1.7 K/uL (20.0-40.0); LYMPHOCYTES % (AUTO) 14.9 % (20.5-51.5); MEAN CORPUSCULAR HEMOGLOBIN 32.4 uug (23.8-33.4); MEAN CORPUSCULAR HGB CONC 32 g/dL (32.5-36.3); MONOCYTES # (AUTO) 0.8 K/uL (2.0-10.0); MONOCYTES % (AUTO) 7.1 % (0.0-11.0); NEUTROPHILS # (AUTO) 8.7 K/uL (1.8-8.9); NEUTROPHILS % (AUTO) 76.7 % (38.5-71.5); PLATELET COUNT (AUTO) 163 K/uL (152-348); RED BLOOD CELL COUNT(AUTO) 3.05 MIL/uL (4.06-5.63)
[2017-01-19 07:22] LABS: WHITE BLOOD COUNT (AUTO) 11.3 K/uL (3.6-10.2)
[2017-01-19 07:23] LABS: HEMATOCRIT 30.8 % (36.7-47.1); HEMOGLOBIN 9.9 g/dL (12.5-16.3)
[2017-01-19 07:27] LABS: CARBON DIOXIDE 28 mmol/L (21-32); CREATININE 0.8 mg/dL (0.6-1.3); GLUCOSE 162 mg/dL (74-106); MAGNESIUM 2.6 mg/dL (1.8-2.4); PHOSPHOROUS 1.9 mg/dL (2.5-4.9); UREA NITROGEN, BLOOD 30 mg/dL (7-18)
[2017-01-19 07:55] LABS: CHLORIDE 123 mmol/L (98-107); POTASSIUM 3.9 mmol/L (3.5-5.1)
--- NOTE | 2017-01-19 08:00 | NUR ---
RESTING QUIET NO SOB OR PAIN CONTINUE IVF AND GT FEEDING JOVITA WELL NO N/V ON ASPIRATION AND FALL PRECAUTION BED ALARM ON AND CALL LIGHT IN REACH KEEP HOB UP AT ALL TIME
[2017-01-19] MEDS: DOXAZOSIN 2 MG TABLET GT SCH ×2 (09:00→17:39)
[2017-01-19] MEDS: CALCIUM CARBONATE 500 MG TABLET GT SCH (09:15)
[2017-01-19] MEDS: VALPROIC ACID 250 MG/5 ML LIQUID UDC GT SCH ×2 (09:15→17:34)
[2017-01-19] MEDS: Z GUARD REMEDY PASTE 57 GM TUBE TOP SCH ×2 (09:16→20:53)
[2017-01-19] MEDS: POTASSIUM CHLORIDE 10 MEQ in IV 1/2NS 1000 ML 1,000 ML IV PRN (10:52)
[2017-01-19 11:36] VITALS: BP 105/50
--- NOTE | 2017-01-19 12:00 | NUR ---
REPOSITION GT WAS HOLD FOR 4 HR TODAY WILL RESTART AGAIN AT 4PM JOVITA GT FEEDING WELL NO N/V
--- NOTE | 2017-01-19 14:00 | NUR ---
DR ELYSE TA HERE PT LAB AND CONDITION INFORM NEW ORDER IN CHART IVF WAS CHANGE ORDER AND INCREASE FLUSH OF H2O ORDER
[2017-01-19] MEDS: IV D5W 1000ML 1,000 ML IV PRN (14:44)
[2017-01-19] MEDS: ALBUTEROL SULFATE 1.25 MG/3 ML NEBU NEB PRN ×2 (14:54→23:03)
--- NOTE | 2017-01-19 15:30 | NUR ---
CHECK FOR IMPACTION OF BM BUT IT WAS NO BM IMPACTION
[2017-01-19 15:36] VITALS: BP 105/56
[2017-01-19] MEDS ORDERED: NEUTRA PHOS PACKET GT ONE (15:45)
[2017-01-19] MEDS: RIVAROXABAN 10 MG TABLET PO SCH (17:35)
--- NOTE | 2017-01-19 18:00 | NUR ---
STABLE CONDITION GT FEEDING JOVITA WELL NO N/V NO ACUTE DISTRESS OR PAIN F/C INPLACE URINE MORE CLEAR LIGHT PK/ TEA COLORED NO CLOTS SAFETY MEASURE PROVIDED BED ALARM ON AND CALL LIGHT WITHIN REACH CLOSED OBSERVATION
--- NOTE | 2017-01-19 19:30 | NUR ---
RECEIVED IN BED, AWAKE, FOLLOW TO SIMPLE COMMANDS. ON GTUBE FEEDING @ 75CC/HR. HOB ELEVATED. NO S/S OF ASPIRATION. IVF INFUSING. MARS INTACT, STILL NOTED WITH HEMATURIA, NO CLOTS.
[2017-01-19 20:00] VITALS: BP 95/47
[2017-01-19] MEDS: QUETIAPINE FUMARATE 25 MG TABLET GT SCH (20:53)
[2017-01-19] MEDS: SIMVASTATIN 20 MG TABLET GT SCH (20:53)
[2017-01-19] MEDS: IPRATROPIUM BROMIDE 0.5 MG/2.5 ML NEBU NEB PRN (23:03)
[2017-01-20] VITALS: BP 93/48
[2017-01-20] MEDS: FIBERSOURCE HN 1000ML LIQUID GT PRN ×2 (00:57→21:47)
[2017-01-20] MEDS: IPRATROPIUM BROMIDE 0.5 MG/2.5 ML NEBU NEB SCH ×4 (01:10→20:13)
[2017-01-20] MEDS: CEFTRIAXONE 1 G in IV DEXTROSE 5% 50 ML IV SCH (03:56)
[2017-01-20 04:00] VITALS: BP 112/65
--- NOTE | 2017-01-20 06:51 | NUR ---
PT IN BED, IN NO ACUTE SIGNS OF DISTRESS. MARS INTACT, HEMATURIA WITH CLOTS, IRRIGATED PRN. GTUBE FEEDING INTACT, NO RESIDUAL NOTED. HOB ELEVATED. SINUS TACH ON TELE HR 104.
[2017-01-20 07:01] LABS: BASOPHILS # (AUTO) 0.1 K/uL (0.0-8.0); BASOPHILS % (AUTO) 0.8 % (0.0-2.0); EOSINOPHILS # (AUTO) 0.2 K/uL (0.0-0.7); EOSINOPHILS % (AUTO) 2.9 % (0.0-7.0); HEMATOCRIT 29.7 % (40-50); HEMOGLOBIN 9.6 G/DL (14.0-18.0); LYMPHOCYTES # (AUTO) 1.4 K/UL (0.8-4.8); LYMPHOCYTES % (AUTO) 16.5 % (20.5-51.5); MEAN CORPUSCULAR HEMOGLOBIN 32.1 UUG (27.0-31.0); MEAN CORPUSCULAR HGB CONC 32 g/dL (32.0-37.0); MEAN CORPUSCULAR VOLUME 99.7 FL (82.0-92.0); MONOCYTES # (AUTO) 0.5 K/UL (0.1-1.30); MONOCYTES % (AUTO) 5.8 % (0.0-11.0); PLATELET COUNT (AUTO) 169 K/UL (150-450); RED BLOOD CELL COUNT(AUTO) 2.98 MIL/UL (4.7-6.1); WHITE BLOOD COUNT (AUTO) 8.2 K/UL (4.0-11.2)
[2017-01-20 07:25] LABS: CARBON DIOXIDE 23 mmol/L (21-32); CHLORIDE 117 mmol/L (98-107); CREATININE 0.8 mg/dL (0.6-1.3); GLUCOSE 187 mg/dL (74-106); MAGNESIUM 2.2 mg/dL (1.8-2.4); PHOSPHOROUS 1.8 mg/dL (2.5-4.9); POTASSIUM 4.3 mmol/L (3.5-5.1); UREA NITROGEN, BLOOD 23 mg/dL (7-18)
[2017-01-20] MEDS: ACETYLCYSTEINE 20% 800 MG/4 ML VIAL NEB SCH ×3 (07:46→23:06)
[2017-01-20] MEDS: CALCIUM CARBONATE 500 MG TABLET GT SCH (08:15)
[2017-01-20] MEDS: VALPROIC ACID 250 MG/5 ML LIQUID UDC GT SCH ×2 (08:17→16:27)
[2017-01-20] MEDS: DOXAZOSIN 2 MG TABLET GT SCH ×2 (08:18→17:00)
--- NOTE | 2017-01-20 08:30 | NUR ---
AWAKE FORGETFUL CONFUSED NO SOB OR PAIN CONTINUE O2 AT 2L /MIN O2 SAT WNL 95% ON ASPIRATION AND FALL PRECAUTION BED ALARM ON AND CALL LIGHT IN REACH F/C INPLACE URINE RED WITH BLOOD CLOTS HAND IRRIGATION GETTING A LOTS OF CLOTS AND PATIENT HEART RATE WAS TACHYCARDIA 151 STOP IRRIGATION AT THIS TIME CLOSED OBSERVATION
[2017-01-20] MEDS: ACETAMINOPHEN 650 MG/20.3 ML LIQUID UDC GT PRN ×2 (08:53→21:22)
[2017-01-20] MEDS: Z GUARD REMEDY PASTE 57 GM TUBE TOP SCH ×2 (08:54→20:32)
--- NOTE | 2017-01-20 09:30 | NUR ---
DR MATSON WAS CALL REGARDING NEED STRONGER PAIN MEDICINE TO GIVE AND MESSAGE LEFT
--- NOTE | 2017-01-20 10:30 | NUR ---
DR MATSON HERE PATIENT LAB RESULT AND CONDITION OF HEMATURIA INFORM NEED STRONGER PAIN MEDICINE BEFORE HAND IRRIGATION
--- NOTE | 2017-01-20 11:00 | NUR ---
VS TAKEN STABLE NO SOB OR RESPIRATORY DISTRESS
[2017-01-20 11:25] VITALS: BP 108/70
--- NOTE | 2017-01-20 11:36 | NUR ---
WOUND CARE CONSULT: PT PRESENTS WITH LEFT EAR LESION, PRESENT ON ADMISSION. PT ALSO HAS RESOLVING EXCORIATION TO BUTTOCK. RECOMMENDATIONS MADE FOR SKIN PROTECTION AND DISCUSSED WITH NURSING STAFF. PT ON FIRST STEP MATTRESS. SURGICAL CONSULT TO BE CALLED BY MD FOR EAR. ALL SKIN PROTECTION MEASURES IN PLACE. WILL SEE PRN. IN AGREEMENT WITH PLAN OF CARE. CURRENT ELIU SCORE IS 12. Addendum: 01/20/17 at 1138 by CLIFFORD VALLADARES RN Amended: Links added.
--- NOTE | 2017-01-20 12:00 | NUR ---
DR MATSON WAS CALL AGAIN REGARDING NO ORDER RECIEVED
--- NOTE | 2017-01-20 12:30 | NUR ---
DR RODRÍGUEZ WAS CALL AND MESSAGE LEFT REGARDING HEMATURIA AND A LOTS OF CLOTS
[2017-01-20] MEDS: IV D5W 1000ML 1,000 ML IV PRN (12:53)
--- NOTE | 2017-01-20 13:00 | NUR ---
HANDIRRIGATION AGAIN A LOTS OF CLOTS OUT AND CONTINUE CBI WITH NS AND CLOSED OBSERVATION
--- NOTE | 2017-01-20 13:30 | NUR ---
DR RODRÍGUEZ CALL BACK PATIENT CONDITION INFORM AND CONTINUE CBI ORDER
--- NOTE | 2017-01-20 14:00 | NUR ---
F/C DRAINING MORE CLEAR WITHOUT BLOOD CLOTS AT THIS TIME CONTINUE CBI ORDER URINE STILL PK
--- NOTE | 2017-01-20 15:00 | NUR ---
DR MATSON WAS CALL AND MESSAGE LEFT REGARDING NEED MED PRN FOR PAIN WHEN DO HAND IRRIGATION TO BLADDER
[2017-01-20 15:43] VITALS: BP 94/56
[2017-01-20] MEDS ORDERED: NEUTRA PHOS PACKET PO ONE (16:00)
--- NOTE | 2017-01-20 16:00 | NUR ---
DR MATSON HERE AND NEW ORDER IN CHART
[2017-01-20] MEDS ORDERED: HYDROMORPHONE 2 MG/1 ML DISP.SYRIN SQ PRN (16:30)
[2017-01-20] MEDS ORDERED: HYDROMORPHONE 1 MG/1 ML DISP.SYRIN SQ PRN (16:30)
--- NOTE | 2017-01-20 17:30 | NUR ---
STABLE CONDITION NO ACUTE DISTRESS F/C INPLACE WITH CBI URINE LIGHT PK WITH CLOTS AND NEED HAND IRRIGATION PRN CONTINUE O2 2L O2 SAT WNL ON ASPIRATION /FALL PRECAUTION BED ALARM ON AND CALL LIGHT IN REACH CLOSED OBSERVATION
[2017-01-20] MEDS: MAGNESIUM HYDROXIDE 30 ML LIQUID UDC GT PRN (18:28)
--- NOTE | 2017-01-20 19:30 | NUR ---
RECEIVED IN BED, ASLEEP, AROUSABLE TO TOUCH. MARS INTACT WITH HEMATURIA, ON CBI. INTACT. GTUBE FEEDING INFUSING, NO RESIDUALS. WILL MONITOR.
[2017-01-20 20:25] VITALS: BP 88/35
[2017-01-20 20:30] VITALS: BP 102/58
[2017-01-20] MEDS: SIMVASTATIN 20 MG TABLET GT SCH (20:32)
[2017-01-20] MEDS: QUETIAPINE FUMARATE 25 MG TABLET GT SCH (20:32)
[2017-01-20] MEDS: ALBUTEROL SULFATE 1.25 MG/3 ML NEBU NEB PRN (23:06)
[2017-01-21] MEDS: IPRATROPIUM BROMIDE 0.5 MG/2.5 ML NEBU NEB SCH ×4 (00:44→19:35)
[2017-01-21] MEDS: CEFTRIAXONE 1 G in IV DEXTROSE 5% 50 ML IV SCH (03:36)
[2017-01-21 04:59] VITALS: BP 108/59
--- NOTE | 2017-01-21 05:59 | NUR ---
IN BED, IN NO ACUTE SIGNS OF DISTRESS, GTUBE FEEDING INFUSING, HOB ELEVATED. NO S/S ASPIRATION NOTED. MARS INTACT, ON CBI, HEMATURIA WITH SOME CLOTS, HAND IRRIGATED X1.
[2017-01-21 07:20] LABS: ALANINE AMINOTRANSFERASE 26 U/L (16-63); ALKALINE PHOSPHATASE 50 U/L (50-136); ASPARTATE AMINOTRANSFERASE 28 U/L (15-37); BILIRUBIN,TOTAL 0.2 mg/dL (0.2-1.0); CARBON DIOXIDE 27 mmol/L (21-32); CHLORIDE 109 mmol/L (98-107); CREATININE 0.9 mg/dL (0.6-1.3); GLUCOSE 184 mg/dL (74-106); MAGNESIUM 2.3 mg/dL (1.8-2.4); PHOSPHOROUS 2.7 mg/dL (2.5-4.9); TOTAL PROTEIN, SERUM 5.1 g/dL (6.4-8.2); UREA NITROGEN, BLOOD 21 mg/dL (7-18)
[2017-01-21 07:26] LABS: BASOPHILS % (AUTO) 0.3 % (0.0-2.0); EOSINOPHILS # (AUTO) 0.2 K/uL (0.0-0.7); EOSINOPHILS % (AUTO) 3.1 % (0.0-7.0); LYMPHOCYTES # (AUTO) 1.6 K/uL (20.0-40.0); MEAN CORPUSCULAR HEMOGLOBIN 32.9 uug (23.8-33.4); MEAN CORPUSCULAR HGB CONC 33 g/dL (32.5-36.3); MEAN CORPUSCULAR VOLUME 99.6 fL (73.0-96.2); MONOCYTES # (AUTO) 0.5 K/uL (2.0-10.0); MONOCYTES % (AUTO) 6.9 % (0.0-11.0); NEUTROPHILS # (AUTO) 5.4 K/uL (1.8-8.9); NEUTROPHILS % (AUTO) 69.7 % (38.5-71.5); PLATELET COUNT (AUTO) 164 K/uL (152-348); WHITE BLOOD COUNT (AUTO) 7.8 K/uL (3.6-10.2)
[2017-01-21] MEDS: ALBUTEROL SULFATE 1.25 MG/3 ML NEBU NEB PRN ×4 (07:32→23:06)
[2017-01-21] MEDS: ACETYLCYSTEINE 20% 800 MG/4 ML VIAL NEB SCH ×3 (07:32→23:06)
[2017-01-21 07:40] LABS: HEMATOCRIT 24.4 % (36.7-47.1); HEMOGLOBIN 8.1 g/dL (12.5-16.3); RED BLOOD CELL COUNT(AUTO) 2.45 MIL/uL (4.06-5.63)
--- NOTE | 2017-01-21 07:42 | NUR ---
Pt. received laying in bed, resting no acute distress noted. pt. has fibersource feeding at 75 cc/hr. no residual noted. pt. also receiving D5 in right AC 50 cc/hr. has zavaleta catheter with blood tinged urine with cont. irrigation ongoing. comfort measures provided
[2017-01-21] MEDS: IV D5W 1000ML 1,000 ML IV PRN (08:22)
[2017-01-21] MEDS: VALPROIC ACID 250 MG/5 ML LIQUID UDC GT SCH ×2 (09:00→16:42)
[2017-01-21] MEDS: Z GUARD REMEDY PASTE 57 GM TUBE TOP SCH ×2 (09:00→21:42)
[2017-01-21] MEDS: CALCIUM CARBONATE 500 MG TABLET GT SCH (09:00)
[2017-01-21] MEDS: DOXAZOSIN 2 MG TABLET GT SCH ×2 (10:00→16:41)
[2017-01-21 11:27] VITALS: BP 96/50
[2017-01-21] MEDS: ACETAMINOPHEN 650 MG/20.3 ML LIQUID UDC GT PRN (11:57)
--- NOTE | 2017-01-21 12:48 | NUR ---
PATIENT GTUBE FEEDING STOPPED AT THIS TIME NOTED LEAKAGE YELLOWISH IN COLOR. DR FIELD SAW PATIENT REQUESTED FEEDING BE STOPPED. NO RESIDUAL NOTED. FLUSHED WITH WATER. ALBUMIN LEVEL 1.5 AND LAB VALUES MADE AWARE TO MARIA GUADALUPE KWAN. TEMP 99.6 TYLENOL GIVEN PRN. WILL CONT TO MONITOR VS. CONTINOUS IRRIGATION IN MARS CATHETER LIGHT PINK IN COLOR. PATIENT TOLERATING WELL. COMFORT MEASURES PROVIDED.
[2017-01-21 15:52] VITALS: BP 88/55
--- NOTE | 2017-01-21 16:10 | NUR ---
Pt sleeping in bed at this time, easily arousable. Still receiving IVF d5w in right hand at 50cc/hr. Nobles catheter light pink in color. Pt turned every 2 hours and remains on air mattress. Will continue to monitor for safety.
--- NOTE | 2017-01-21 16:23 | NUR ---
Pt b/p re-checked 83/48, heart rate 68. MD paged few times regarding pt b/P and labs, still awaiting call back.
[2017-01-21 20:54] VITALS: BP 90/45
[2017-01-21] MEDS: QUETIAPINE FUMARATE 25 MG TABLET GT SCH (21:00)
--- NOTE | 2017-01-21 21:00 | NUR ---
received to care, lying in bed, sleeping, but easy to arouse. b/p is 90/45, so bedtime dose of seroquel was held. continues to receive IVF d5w in right hand at 50cc/hr. remains on bladder irrigation. Nobles catheter patent, urine light pink in color. Pt turned every 2 hours and remains on air mattress. no distress noted. Will continue to monitor closely..
[2017-01-21] MEDS: SIMVASTATIN 20 MG TABLET GT SCH (21:42)
[2017-01-22] MEDS: IV D5W 1000ML 1,000 ML IV PRN ×2 (00:34→06:01)
[2017-01-22] MEDS: IPRATROPIUM BROMIDE 0.5 MG/2.5 ML NEBU NEB SCH ×4 (01:02→19:35)
[2017-01-22 01:10] VITALS: BP 90/46
[2017-01-22] MEDS: CEFTRIAXONE 1 G in IV DEXTROSE 5% 50 ML IV SCH (03:45)
[2017-01-22 04:24] VITALS: BP 93/51
[2017-01-22 06:13] LABS: BASOPHILS % (AUTO) 0.7 % (0.0-2.0); EOSINOPHILS # (AUTO) 0.4 K/uL (0.0-0.7); EOSINOPHILS % (AUTO) 6.8 % (0.0-7.0); HEMATOCRIT 24.4 % (40-50); LYMPHOCYTES # (AUTO) 1.5 K/UL (0.8-4.8); LYMPHOCYTES % (AUTO) 26.4 % (20.5-51.5); MEAN CORPUSCULAR HEMOGLOBIN 31.2 UUG (27.0-31.0); MEAN CORPUSCULAR HGB CONC 32 g/dL (32.0-37.0); MEAN CORPUSCULAR VOLUME 97.4 FL (82.0-92.0); MONOCYTES # (AUTO) 0.5 K/UL (0.1-1.30); MONOCYTES % (AUTO) 9.2 % (0.0-11.0); NEUTROPHILS # (AUTO) 3.4 K/UL (1.8-8.9); NEUTROPHILS % (AUTO) 56.9 % (38.5-71.5); PLATELET COUNT (AUTO) 179 K/UL (150-450); WHITE BLOOD COUNT (AUTO) 5.8 K/UL (4.0-11.2)
[2017-01-22 06:37] LABS: HEMOGLOBIN 7.8 G/DL (14.0-18.0)
--- NOTE | 2017-01-22 06:37 | NUR ---
IV SITE CHANGED FROM LEFT HAND TO RIGHT FOREARM GAUGE 20 REPOSITIONED FOR COMFORT.
--- NOTE | 2017-01-22 07:00 | NUR ---
PT IS SLEEPING IN BED COMFORTABLY. NO S/S OF RESPIRATORY DISTRESS NOTED. PT IS ON RA. IV INTACT/PATENT. GTUBE IS CHECKED FOR PLACEMENT. ALL SAFETY NEEDS ARE MET. MARS HAS PALE IN COLOR URINE/ CLEAR. IRRIGATION IS WORKING. WILL CONTINUE TO MONITOR. NO PAIN NOTED.
[2017-01-22 07:23] LABS: ALANINE AMINOTRANSFERASE 23 U/L (16-63); ALKALINE PHOSPHATASE 48 U/L (50-136); ASPARTATE AMINOTRANSFERASE 23 U/L (15-37); BILIRUBIN,TOTAL 0.3 mg/dL (0.2-1.0); CARBON DIOXIDE 26 mmol/L (21-32); CHLORIDE 107 mmol/L (98-107); CREATININE 0.7 mg/dL (0.6-1.3); GLUCOSE 106 mg/dL (74-106); MAGNESIUM 2.3 mg/dL (1.8-2.4); PHOSPHOROUS 3.4 mg/dL (2.5-4.9); POTASSIUM 3.9 mmol/L (3.5-5.1); TOTAL PROTEIN, SERUM 5.2 g/dL (6.4-8.2); UREA NITROGEN, BLOOD 15 mg/dL (7-18)
[2017-01-22] MEDS: ACETYLCYSTEINE 20% 800 MG/4 ML VIAL NEB SCH ×3 (07:43→22:59)
[2017-01-22] MEDS: ALBUTEROL SULFATE 1.25 MG/3 ML NEBU NEB PRN ×3 (07:43→22:59)
[2017-01-22] MEDS: DOXAZOSIN 2 MG TABLET GT SCH ×2 (09:00→16:06)
[2017-01-22] MEDS: CALCIUM CARBONATE 500 MG TABLET GT SCH (09:41)
[2017-01-22] MEDS: VALPROIC ACID 250 MG/5 ML LIQUID UDC GT SCH ×2 (09:50→17:44)
[2017-01-22] MEDS: Z GUARD REMEDY PASTE 57 GM TUBE TOP SCH ×2 (09:54→20:26)
[2017-01-22 10:17] LABS: EOSINOPHILS % (MANUAL) 10 % (0-8); LYMPHOCYTES % (MANUAL) 24 % (20-40); MONOCYTES % (MANUAL) 5 % (2-10); NEUTROPHILS % (MANUAL) 61 % (42-75)
[2017-01-22 11:23] VITALS: BP 92/46
[2017-01-22 15:55] VITALS: BP 116/54
[2017-01-22] MEDS ORDERED: DIATR MEGLU/DIATRIZOATE SODIUM 120 ML BOTTLE PO STA (15:57)
--- NOTE | 2017-01-22 16:00 | NUR ---
DR. SWEENEY REPLACED GTUBE, NO S/S OF ACTIVE BLEEDING NOTED, DRESSING CHANGED. GTUBE INSERTION AREA SKIN IS C/D/I.
--- NOTE | 2017-01-22 18:52 | NUR ---
PT IS SLEEPING IN BED COMFORTABLY. NO S/S OF RESPIRATORY DISTRESS NOTED. PT IS ON RA. IV INTACT/PATENT. GTUBE IS CHECKED FOR PLACEMENT/FLUSHED. ALL SAFETY NEEDS ARE MET. MARS HAS PALE IN COLOR URINE/ CLEAR. IRRIGATION IS WORKING WNL. NO CLOTS NOTED. PT IS CALM AND COOPERATIVE. NO PAIN NOTED. HOB IS ELEVATED.
[2017-01-22 20:00] VITALS: BP 99/52
--- NOTE | 2017-01-22 20:00 | NUR ---
patient awake,confused,calm,cooperative, in no acute distress,3 ways zavaleta cath with continue irrigation on ,urine return clear, yellowish, no blood clots noted,turn and reposition , g tube intact , kub confirmed proper placement.
[2017-01-22] MEDS: QUETIAPINE FUMARATE 25 MG TABLET GT SCH (20:26)
[2017-01-22] MEDS: SULFAMETH/TRIMETH 800/160 MG TABLET PO SCH (20:26)
[2017-01-22] MEDS: SIMVASTATIN 20 MG TABLET GT SCH (20:26)
[2017-01-22] MEDS: FIBERSOURCE HN 1000ML LIQUID GT PRN (21:00)
--- NOTE | 2017-01-22 21:00 | NUR ---
start patient on g tube feeding with fiber source HN,HOB elevated, continue closely monitor.
[2017-01-22] MEDS: IPRATROPIUM BROMIDE 0.5 MG/2.5 ML NEBU NEB PRN (22:59)
[2017-01-23] MEDS: IPRATROPIUM BROMIDE 0.5 MG/2.5 ML NEBU NEB SCH ×3 (01:02→13:22)
[2017-01-23] MEDS: IV D5W 1000ML 1,000 ML IV PRN (01:04)
[2017-01-23 04:59] VITALS: BP 92/50
--- NOTE | 2017-01-23 06:00 | NUR ---
urine out put clear adequate amount, no clots,tolerated tube feeding no residual, small amount of tube feeding oozing from the stoma,reposition and changed dressing.
[2017-01-23] MEDS: ALBUTEROL SULFATE 1.25 MG/3 ML NEBU NEB PRN (07:41)
[2017-01-23] MEDS: ACETYLCYSTEINE 20% 800 MG/4 ML VIAL NEB SCH (07:41)
--- NOTE | 2017-01-23 08:00 | NUR ---
AWAKE CONFUSED NO PAIN OR SOB CONTINUE GT FEEDING WITH FIBERSOURCE AT 75ML/HR JOVITA WELL NO RESIDUAL NO N/V ON FALL AND ASPIRATION PRECAUTION F/C INPLACE URINE CLEAR YELLOW NO BLOOD CLOTS BED ALARM ON AND CALL LIGHT IN REACH
[2017-01-23] MEDS ORDERED: SULF1TAB3 PO (08:13)
[2017-01-23] MEDS ORDERED: Sodium Phosphate Fleet RC (08:13)
[2017-01-23] MEDS: VALPROIC ACID 250 MG/5 ML LIQUID UDC GT SCH (08:31)
[2017-01-23] MEDS: ACETAMINOPHEN 650 MG/20.3 ML LIQUID UDC GT PRN (08:31)
[2017-01-23] MEDS: SULFAMETH/TRIMETH 800/160 MG TABLET PO SCH (08:31)
[2017-01-23] MEDS: CALCIUM CARBONATE 500 MG TABLET GT SCH (08:32)
[2017-01-23] MEDS: DOXAZOSIN 2 MG TABLET GT SCH (08:34)
[2017-01-23] MEDS: Z GUARD REMEDY PASTE 57 GM TUBE TOP SCH (08:34)
--- NOTE | 2017-01-23 09:00 | NUR ---
DR MATSON SEE PATIENT AND ORDER OK TO D/C BACK TO [facility] [place] WITH [place]DERS
[2017-01-23 11:00] VITALS: BP 96/48
--- NOTE | 2017-01-23 11:00 | NUR ---
WOUND CARE DSG CHANGE AND REPOSITION Q2 HR FAMILY WAS INFORM OF DISCHARGE TODAY
--- NOTE | 2017-01-23 11:45 | NUR ---
SNF WAS CALL REPORT GIVEN TO TONYA NURSE VIA TEL
--- NOTE | 2017-01-23 12:15 | NUR ---
D/C TO SNF VIA AMBULANCE CONDITION STABLE NO SOB OR PAIN NO HEMATURIA URINE CLEAR YELLOW
== END 2017-01-23 12:00 | DRG 689 ==
LOC: ER 01:09 → TELE 06:00 → MED 01-20 19:40
PROVIDERS: ADMIT Internal Medicine; ATTEND Internal Medicine
PROC: 0T7D7ZZ Dilation of Urethra, Via Natural or Artificial Opening (ICD-10-PCS; principal; 2017-01-17)
PROC: 0T9B70Z Drainage of Bladder with Drainage Device, Via Natural or Artificial Opening (ICD-10-PCS; 2017-01-17)
PROC: 0DCQ7ZZ Extirpation of Matter from Anus, Via Natural or Artificial Opening (ICD-10-PCS; 2017-01-17)
PROC: 0D20XUZ Change Feeding Device in Upper Intestinal Tract, External Approach (ICD-10-PCS; 2017-01-22)
DX: N39.0 Urinary tract infection, site not specified (principal); G92 Toxic encephalopathy; J18.9 Pneumonia, unspecified organism; E87.0 Hyperosmolality and hypernatremia; K94.23 Gastrostomy malfunction; R13.10 Dysphagia, unspecified; B96.4 Proteus (mirabilis) (morganii) as the cause of diseases classified elsewhere; F03.90 Unspecified dementia, unspecified severity, without behavioral disturbance, psychotic disturbance, mood disturbance, and anxiety; R31.0 Gross hematuria; R80.9 Proteinuria, unspecified; N35.9 Urethral stricture, unspecified; K56.41 Fecal impaction; I25.2 Old myocardial infarction; N40.1 Benign prostatic hyperplasia with lower urinary tract symptoms; R33.8 Other retention of urine; L98.8 Other specified disorders of the skin and subcutaneous tissue; D50.0 Iron deficiency anemia secondary to blood loss (chronic); E11.22 Type 2 diabetes mellitus with diabetic chronic kidney disease; I12.9 Hypertensive chronic kidney disease with stage 1 through stage 4 chronic kidney disease, or unspecified chronic kidney disease; N18.9 Chronic kidney disease, unspecified; F32.9 Major depressive disorder, single episode, unspecified; Z82.49 Family history of ischemic heart disease and other diseases of the circulatory system; Z83.3 Family history of diabetes mellitus; Z79.899 Other long term (current) drug therapy; Z86.711 Personal history of pulmonary embolism; Z79.01 Long term (current) use of anticoagulants; Z82.3 Family history of stroke; Z86.718 Personal history of other venous thrombosis and embolism; E78.5 Hyperlipidemia, unspecified
CPT/HCPCS: 36415; 71010; 74000; 83735; 84100; 85025; 85730; 86850; 86900; 86901; 87070; 87077; 87086; 93005; 94640; 94664; A4217; A4663; J0696; J1170; J2405; J3480; J3490; J3590; J7030; J7060; J7070; Q9963

== ENCOUNTER 2017-03-04 16:41 | Emergency (ER) | payer MEDICARE, MEDICAID ==
[~2017-03-04] VITALS: Ht 182.9 cm; Wt 81.6 kg
[~2017-03-04 16:41] MED LIST changes: +ACET200V5 INH; -ALBU2.5V38 IH; -AMOX-430 PO; -CALC-555 GT; +CALC500T51 GT; -DOXA1TAB GT; +DOXA2TAB GT; +IPRA0.2S6 NEB; -MULT237L4 GT; +SULF1TAB3 PO; +Sodium Phosphate Fleet RC
[2017-03-04] MEDS ORDERED: LIDOCAINE 2% (UROJET) 10 ML JELLY MM ONE ×2 (17:15→17:46)
[2017-03-04 17:41] LABS: CARBON DIOXIDE 28 mmol/L (21-32); CHLORIDE 103 mmol/L (98-107); CREATININE 0.6 mg/dL (0.6-1.3); GLUCOSE 87 mg/dL (74-106); POTASSIUM 4.3 mmol/L (3.5-5.1); UREA NITROGEN, BLOOD 12 mg/dL (7-18)
[2017-03-04 17:42] LABS: BASOPHILS % (AUTO) 0.9 % (0.0-2.0); EOSINOPHILS # (AUTO) 0.6 K/uL (0.0-0.7); EOSINOPHILS % (AUTO) 10.5 % (0.0-7.0); HEMATOCRIT 39.4 % (36.7-47.1); LYMPHOCYTES # (AUTO) 1.6 K/uL (20.0-40.0); LYMPHOCYTES % (AUTO) 28.8 % (20.5-51.5); MEAN CORPUSCULAR HEMOGLOBIN 32.1 uug (23.8-33.4); MEAN CORPUSCULAR HGB CONC 33 g/dL (32.5-36.3); MEAN CORPUSCULAR VOLUME 97.4 fL (73.0-96.2); MONOCYTES # (AUTO) 0.7 K/uL (2.0-10.0); MONOCYTES % (AUTO) 13.4 % (0.0-11.0); NEUTROPHILS # (AUTO) 2.6 K/uL (1.8-8.9); NEUTROPHILS % (AUTO) 46.4 % (38.5-71.5); PLATELET COUNT (AUTO) 161 K/uL (152-348); RED BLOOD CELL COUNT(AUTO) 4.05 MIL/uL (4.06-5.63); WHITE BLOOD COUNT (AUTO) 5.5 K/uL (3.6-10.2)
[2017-03-04 17:46] LABS: ALANINE AMINOTRANSFERASE 17 U/L (16-63); ALKALINE PHOSPHATASE 64 U/L (50-136); ASPARTATE AMINOTRANSFERASE 16 U/L (15-37); BILIRUBIN,TOTAL 0.4 mg/dL (0.2-1.0); TOTAL PROTEIN, SERUM 7.4 g/dL (6.4-8.2)
--- NOTE | 2017-03-04 17:59 | NUR ---
COUDE CATHETER INSERTED USING LIDOCAINE UROJET - TOLERATED WELL BY PATENT - PATENCY RESTORED.
--- NOTE | 2017-03-04 18:01 | NUR ---
AMBULANCE CALLED FOR RETURN TRANSPORT TO [facility].
--- NOTE | 2017-03-04 18:18 | NUR ---
SPOKE WITH MARI COLMENARES MADE AWARE PATIENT WILL SENT BACK.
--- NOTE | 2017-03-04 19:07 | NUR ---
Desiree called to inform of ETA, 10 min.
--- NOTE | 2017-03-04 19:28 | NUR ---
Patient discharged to home in stable conditon. Written and verbal after care instructions given. Patient verbalizes understanding of instructions.
== END 2017-03-04 19:30 | disposition home or self-care (01) ==
LOC: ER 16:45
DX: Z46.6 Encounter for fitting and adjustment of urinary device (principal); F02.80 Dementia in other diseases classified elsewhere, unspecified severity, without behavioral disturbance, psychotic disturbance, mood disturbance, and anxiety; E78.5 Hyperlipidemia, unspecified; G30.9 Alzheimer's disease, unspecified; I25.10 Atherosclerotic heart disease of native coronary artery without angina pectoris; K21.9 Gastro-esophageal reflux disease without esophagitis
CPT/HCPCS: 36415; 51702; 85025; A4663

== ENCOUNTER 2017-03-28 12:27 | Emergency (ER) | payer MEDICARE, MEDICAID ==
[~2017-03-28] VITALS: Ht 167.6 cm; Wt 99.8 kg
[2017-03-28] MEDS ORDERED: ASCO500C18 GT (13:13)
[2017-03-28] MEDS ORDERED: Doxazosin Mesylate GT (13:13)
[2017-03-28] MEDS ORDERED: MULT237L4 GT (13:13)
[2017-03-28] MEDS ORDERED: NA P133E RC (13:13)
[2017-03-28] MEDS ORDERED: CRAN3875 GT (13:13)
--- NOTE | 2017-03-28 13:18 | NUR ---
abd soft and non tender. g tube sight has small amt serous fluid. pt color good no vomiting. 24 guage g tube easily inserted by dr perez. no bleeding.
[2017-03-28] MEDS ORDERED: DIATR MEGLU/DIATRIZOATE SODIUM 30 ML SOLUTION ONE (13:55)
--- NOTE | 2017-03-28 15:55 | NUR ---
abd remains soft and non tender. g tube in situ. phoned ambulance to book return to long-term and given eta of 7 pm,
--- NOTE | 2017-03-28 19:03 | NUR ---
report called to [facility] and awaiting ambulance
[2017-03-28 19:10] VITALS: BP 134/76
== END 2017-03-28 19:11 | disposition home or self-care (01) ==
LOC: ER 12:29
DX: K94.23 Gastrostomy malfunction (principal); E78.5 Hyperlipidemia, unspecified; F02.80 Dementia in other diseases classified elsewhere, unspecified severity, without behavioral disturbance, psychotic disturbance, mood disturbance, and anxiety; F32.9 Major depressive disorder, single episode, unspecified; G30.9 Alzheimer's disease, unspecified; I10 Essential (primary) hypertension; I25.10 Atherosclerotic heart disease of native coronary artery without angina pectoris; K21.9 Gastro-esophageal reflux disease without esophagitis; Z86.711 Personal history of pulmonary embolism
CPT/HCPCS: 74018; A4663; Q9963

== ENCOUNTER 2017-03-28 20:56 | Emergency (ER) | payer MEDICARE, MEDICAID ==
[~2017-03-28] VITALS: Ht 167.6 cm; Wt 108.9 kg
[~2017-03-28 20:56] MED LIST changes: +ASCO500C18 GT; +CRAN3875 GT; +Doxazosin Mesylate GT; +MULT237L4 GT
--- NOTE | 2017-03-28 21:15 | NUR ---
Jens wallace from [facility] for g-tube placement. Pt seen by Dr. Layne, tube replaced, awaiting xray confirmation of placement.
--- NOTE | 2017-03-28 21:53 | NUR ---
Spoke with Wilma, nursing furnace process supervisor at [facility], informed her gtube was placed and pt will be returning
[2017-03-28] MEDS ORDERED: DIATR MEGLU/DIATRIZOATE SODIUM 120 ML BOTTLE PO ONE (22:00)
--- NOTE | 2017-03-28 22:14 | NUR ---
Pt stable for discharge. Ambulance at bedside to transfer pt back to facility.
[2017-03-28] MEDS ORDERED: DIATR MEGLU/DIATRIZOATE SODIUM 120 ML BOTTLE ONE (22:16)
[2017-03-28 22:23] VITALS: BP 120/64
== END 2017-03-28 22:25 | disposition home or self-care (01) ==
LOC: ER 20:57
DX: Z43.1 Encounter for attention to gastrostomy (principal); E78.5 Hyperlipidemia, unspecified; F02.80 Dementia in other diseases classified elsewhere, unspecified severity, without behavioral disturbance, psychotic disturbance, mood disturbance, and anxiety; F32.9 Major depressive disorder, single episode, unspecified; G30.9 Alzheimer's disease, unspecified; I10 Essential (primary) hypertension; I25.10 Atherosclerotic heart disease of native coronary artery without angina pectoris; K21.9 Gastro-esophageal reflux disease without esophagitis; Z86.711 Personal history of pulmonary embolism
CPT/HCPCS: 74018; A4663; Q9963

== ENCOUNTER 2017-03-29 08:25 | Inpatient (IN) | payer MEDICARE, MEDICAID ==
[~2017-03-29] VITALS: Ht 172.7 cm; Wt 108.9 kg
[~2017-03-29 08:25] MED LIST changes: -DOXA2TAB GT; -LACT-209 PO; -SULF1TAB3 PO; -Sodium Phosphate Fleet RC
--- NOTE | 2017-03-29 08:41 | NUR ---
PT BIBA W/ C/O DISLODGED G-TUBE. PT IN BED. PT ON HEART MONITOR. MD HATHAWAY AT BEDSIDE CONDUCTING MED EVAL. AWAITING MD ORDERS.
[2017-03-29 09:02] LABS: CARBON DIOXIDE 23 mmol/L (21-32); CHLORIDE 105 mmol/L (98-107); CREATININE 0.6 mg/dL (0.6-1.3); GLUCOSE 109 mg/dL (74-106); POTASSIUM 4.2 mmol/L (3.5-5.1); UREA NITROGEN, BLOOD 17 mg/dL (7-18)
[2017-03-29 09:04] LABS: BASOPHILS # (AUTO) 0.2 K/uL (0.0-8.0); BASOPHILS % (AUTO) 1.8 % (0.0-2.0); EOSINOPHILS # (AUTO) 0.2 K/uL (0.0-0.7); EOSINOPHILS % (AUTO) 2.2 % (0.0-7.0); HEMATOCRIT 37.3 % (36.7-47.1); HEMOGLOBIN 12.7 g/dL (12.5-16.3); LYMPHOCYTES # (AUTO) 1.6 K/uL (20.0-40.0); LYMPHOCYTES % (AUTO) 15.4 % (20.5-51.5); MEAN CORPUSCULAR HEMOGLOBIN 32.8 uug (23.8-33.4); MEAN CORPUSCULAR HGB CONC 34 g/dL (32.5-36.3); MEAN CORPUSCULAR VOLUME 96.5 fL (73.0-96.2); MONOCYTES # (AUTO) 1.3 K/uL (2.0-10.0); MONOCYTES % (AUTO) 12.6 % (0.0-11.0); NEUTROPHILS # (AUTO) 6.9 K/uL (1.8-8.9); PLATELET COUNT (AUTO) 186 K/uL (152-348); RED BLOOD CELL COUNT(AUTO) 3.87 MIL/uL (4.06-5.63); WHITE BLOOD COUNT (AUTO) 10.2 K/uL (3.6-10.2)
[2017-03-29 09:08] LABS: ALANINE AMINOTRANSFERASE 12 U/L (16-63); ALKALINE PHOSPHATASE 62 U/L (50-136); ASPARTATE AMINOTRANSFERASE 16 U/L (15-37); BILIRUBIN,TOTAL 0.5 mg/dL (0.2-1.0); TOTAL PROTEIN, SERUM 7.4 g/dL (6.4-8.2)
--- NOTE | 2017-03-29 09:35 | NUR ---
PT IN BED. VS STABLE. MED EVAL COMPLETED. WOUNDSITE HAS BEEN CLEANED AND DRESSED. 22G IV STARTED ON RT AC. AWAITING FURTHER MD ORDERS.
--- NOTE | 2017-03-29 10:32 | NUR ---
REPORT GIVEN TO DENNIS COLMENARES. PT TRANSPORTED TO [id number]
--- NOTE | 2017-03-29 10:40 | NUR ---
PT ARRIVED ON THE UNIT ON A GURNEY WITH A RIGHT AC IV 22 GAUGE. IV INTACT.PT IS CALM, COOPERATIVE, AOX1. RESPONDS TO NAME ONLY. HAS BEEN ADMITTED BEFORE. PT CAME FROM A SENIOR LIVING. PT HAD THE G TUBE REINSERTED YESTERDAY. PT HAS SACRAL REDNESS, PICTURES WERE TAKEN AND PLACED IN CHART. MEPILEX APPLIED.
[2017-03-29 11:34] VITALS: BP 133/76
[2017-03-29] MEDS ORDERED: DOSING BY PHARMACY-MD TO SPECIFY MED/ROUTE XX PRN (11:45)
[2017-03-29] MEDS ORDERED: BISACODYL 10 MG SUPP.RECT RC PRN (12:00)
[2017-03-29] MEDS ORDERED: MAGNESIUM HYDROXIDE 30 ML LIQUID UDC GT PRN (12:00)
[2017-03-29] MEDS ORDERED: FLEET ENEMA 133 ML BOTTLE RC PRN (12:00)
[2017-03-29] MEDS ORDERED: IPRATROPIUM BROMIDE 0.5 MG/2.5 ML NEBU NEB SCH (12:00)
--- NOTE | 2017-03-29 12:10 | NUR ---
PHARMACY CLINICAL NOTES: VANCOMYCIN DOSING S: 86 YO male with DX of GT site infection (cellulitis) MD ordered Vancomycin and Zosyn O: BUN/SCR 17/0.6 ; DOSING WT 240 LBS; WBC 10.2; TEMP 98.6 ; CRCL (OBESE) 69.8 ML/MIN A/P: Will dose Zosyn as 3.375 q6h and continue with Vancomycin 2000 mg q18hr. This regimen would yield an estimated peak of 41 and trough of 16.86. Plan to order a trough prior to 4th dose on 03/31 ~ 1900 (not ordered in [employer] yet) will continue to monitor renal fxn and levels and adjust dose as necessary
[2017-03-29] MEDS: IV D5/ 0.9% NACL 1,000 ML IV PRN (12:21)
[2017-03-29] MEDS: PIPERACILLIN/TAZOBACTAM/D5W 50 ML IV SCH ×3 (12:29→23:38)
[2017-03-29] MEDS: ACETYLCYSTEINE 20% 800 MG/4 ML VIAL INH SCH ×2 (12:39→23:12)
[2017-03-29] MEDS: VANCOMYCIN IV 2,000 MG in IV DEXTROSE 5% 500 ML IV SCH (13:49)
[2017-03-29 15:28] VITALS: BP 138/80
[2017-03-29] MEDS: VALPROIC ACID 250 MG/5 ML LIQUID UDC GT SCH (16:49)
[2017-03-29] MEDS: DOXAZOSIN 1 MG TABLET PO SCH (16:49)
--- NOTE | 2017-03-29 16:51 | NUR ---
VALPORIC ACID AND DOXAZOSIN HELD. PT IS NPO AND G TUBE MALFUNCTION. CONTINUE TO MONITOR PT.
[2017-03-29] MEDS: RIVAROXABAN 10 MG TABLET PO SCH (17:56)
--- NOTE | 2017-03-29 17:57 | NUR ---
MELINDA HELD PT HAS MALFUNCTIONING G TUBE, PT IS ALSO NPO PER MD ORDER.
--- NOTE | 2017-03-29 18:21 | NUR ---
PT BED IN LOWEST LOCKED POSITION. PT CALM AT THIS TIME. PT HAS NO SIGNS OF RESPIRATORY DISTRESS. PT SHOWS NO SIGNS OF PAIN. FLACC USED TO ASSESS PAIN. CONTINUE TO MONITOR PT.
[2017-03-29 20:06] VITALS: BP 132/76
[2017-03-29] MEDS: SIMVASTATIN 20 MG TABLET GT SCH (20:20)
--- NOTE | 2017-03-29 20:21 | NUR ---
ZOCOR HELD SINCE PT HAS MALFUNCTIONING G-TUBE AND HAS NPO ORDER AT THIS TIME.
--- NOTE | 2017-03-29 20:55 | NUR ---
MO TAKEN VIA GURNEY TO CT SCAN. IN STABLE CONDITION AT THIS TIME. NO S/S OF DISTRESS NOTED.
--- NOTE | 2017-03-29 21:27 | NUR ---
PT RETURNED FROM CT AT THIS TIME. NO ACUTE CHANGES NOTED. IN STABLE CONDITION. CONTINUED IV FLUIDS- IV SITE PATENT AND FLUSHING. ABDOMINAL BINDER IN PLACE. BED LOCKED AND IN LOW POSITION.
[2017-03-29] MEDS: ALBUTEROL SULFATE 1.25 MG/3 ML NEBU NEB PRN (23:12)
[2017-03-29] MEDS ORDERED: ACETYLCYSTEINE 20% 800 MG/4 ML VIAL ONE (23:15)
[2017-03-29] MEDS ORDERED: ALBUTEROL SULFATE 2.5 MG/3 ML NEBU ONE (23:27)
--- NOTE | 2017-03-29 23:43 | NUR ---
PRN ALBUTEROL TX WAS GIVEN.
[2017-03-30] MEDS: IPRATROPIUM BROMIDE 0.5 MG/2.5 ML NEBU NEB SCH ×4 (01:45→19:27)
[2017-03-30] MEDS: PIPERACILLIN/TAZOBACTAM/D5W 50 ML IV SCH ×4 (05:01→23:05)
[2017-03-30 05:57] VITALS: BP 125/76
[2017-03-30 06:33] LABS: CARBON DIOXIDE 19 mmol/L (21-32); CHLORIDE 108 mmol/L (98-107); CREATININE 1.1 mg/dL (0.6-1.3); GLUCOSE 160 mg/dL (74-106); POTASSIUM 3.9 mmol/L (3.5-5.1); UREA NITROGEN, BLOOD 21 mg/dL (7-18)
[2017-03-30 06:48] LABS: BASOPHILS # (AUTO) 0.1 K/uL (0.0-8.0); BASOPHILS % (AUTO) 0.5 % (0.0-2.0); EOSINOPHILS % (AUTO) 0.1 % (0.0-7.0); LYMPHOCYTES % (AUTO) 5.7 % (20.5-51.5); MEAN CORPUSCULAR HEMOGLOBIN 31.5 uug (23.8-33.4); MEAN CORPUSCULAR HGB CONC 32 g/dL (32.5-36.3); MEAN CORPUSCULAR VOLUME 97.9 fL (73.0-96.2); MONOCYTES # (AUTO) 1.4 K/uL (2.0-10.0); MONOCYTES % (AUTO) 8.4 % (0.0-11.0); NEUTROPHILS # (AUTO) 14.5 K/uL (1.8-8.9); NEUTROPHILS % (AUTO) 85.3 % (38.5-71.5); PLATELET COUNT (AUTO) 153 K/uL (152-348); RED BLOOD CELL COUNT(AUTO) 4.28 MIL/uL (4.06-5.63)
[2017-03-30] MEDS: VANCOMYCIN IV 2,000 MG in IV DEXTROSE 5% 500 ML IV SCH (07:03)
[2017-03-30 07:05] LABS: HEMOGLOBIN 13.5 g/dL (12.5-16.3)
[2017-03-30 07:06] LABS: HEMATOCRIT 41.9 % (36.7-47.1)
[2017-03-30] MEDS ORDERED: ACETYLCYSTEINE 20% 800 MG/4 ML VIAL INH SCH (07:35)
[2017-03-30] MEDS: ACETYLCYSTEINE 10% 4ML VIAL NEB SCH ×3 (07:56→23:12)
[2017-03-30] MEDS: VALPROIC ACID 250 MG/5 ML LIQUID UDC GT SCH ×2 (08:49→17:00)
[2017-03-30] MEDS: ASCORBIC ACID 500 MG TABLET GT SCH (08:49)
[2017-03-30] MEDS: QUETIAPINE FUMARATE 25 MG TABLET GT SCH (08:49)
[2017-03-30] MEDS: CALCIUM CARBONATE 500 MG TABLET GT SCH (08:49)
[2017-03-30] MEDS: MULTIVIT, IRON, MIN NO. 8, FA TABLET GT SCH (08:49)
[2017-03-30] MEDS: DOXAZOSIN 1 MG TABLET PO SCH ×2 (08:50→17:00)
--- NOTE | 2017-03-30 08:56 | NUR ---
PT ORAL/G-TUBE MEDS WERE HELD. PT G TUBE IS MALFUNCTIONING AND PT IS NPO AT THIS TIME. RISK FOR ASPIRATION.
[2017-03-30] MEDS ORDERED: Medication Not On Formulary EA (Ascorbic Acid (Vitamin C) 500 MG) GT SCH (09:00)
[2017-03-30] MEDS ORDERED: MULTIVITAMIN WITH MINERALS GT SCH (09:00)
--- NOTE | 2017-03-30 10:26 | NUR ---
PHARMACY CLINICAL NOTES: VANCOMYCIN DOSING S: Will continue vanco for this 86 YO male with DX of GT site infection (cellulitis) O: BUN/SCR 21/1.1 ; DOSING WT 108 KG; WBC 17; TEMP 98.9 A/P: Since srcr increased from 0.6 to 1.1, will change dose from Vancomycin 2000 mg ivpb q18hr to vanco 1500mg ivpb q19h for predicted vanco trough level of 16 mcg/ml. 1st dose of this regimen is due tomorrow at 0500. plan to order trough before 4th dose of this regimen (not yet ordered). will continue to monitor renal fxn and levels and adjust dose as necessary
[2017-03-30 11:22] VITALS: BP 107/56
--- NOTE | 2017-03-30 14:00 | NUR ---
PT TEMPERATURE 99.9, COOLING MEASURES APPLIED. ICE PACK UNDER ARMS. CONTINUE TO MONITOR PT.
[2017-03-30 15:32] VITALS: BP_SYST 110; BP_SYST 121; BP_DIAS 58; BP_DIAS 79
[2017-03-30] MEDS: IV D5/ 0.9% NACL 1,000 ML IV PRN (16:20)
--- NOTE | 2017-03-30 17:16 | NUR ---
BERTHA AND MECHELLE HELD DUE TO G TUBE MALFUNCTION AND NPO STATUS. PT IS AT RISK FOR ASPIRATION PER NUCLEAR EQUIPMENT OPERATOR. PT COUGHS DURING DRINKING OF WATER.
[2017-03-30] MEDS: RIVAROXABAN 10 MG TABLET PO SCH (18:00)
--- NOTE | 2017-03-30 18:32 | NUR ---
XARELTO HELD DUE TO PT BEING NPO AND G- TUBE MALFUNCTION. RISK FOR ASPIRATION.
--- NOTE | 2017-03-30 18:34 | NUR ---
PT OBSERVED AWAKE IN BED, NON VERBAL, NO SIGNS OF RESPIRATORY DISTRESS. PT IS CALM, VITALS STABLE. CONTINUE TO MONITOR PT.
--- NOTE | 2017-03-30 19:00 | NUR ---
Pt Nobles hasn't had any urine. bladder scan performed. 790cc according to bladder scan. Endorsed to maintenance technician 2nd shift.
--- NOTE | 2017-03-30 20:10 | NUR ---
G-TUBE INSERTED BY CITY LETTER CARRIER AT BEDSIDE. XRAY KUB PERFORMED AT BEDSIDE. PT TOLERATED PROCEDURE WELL. STILL AWAITING RESULTS.
--- NOTE | 2017-03-30 20:19 | NUR ---
MARS CATHETER INSERTED #[id number] WITH URINE RETURN. NO COMPLICATIONS NOTED. TOTAL OUTPUT 1400ML
[2017-03-30 20:20] VITALS: BP 124/77
[2017-03-30] MEDS ORDERED: DIATR MEGLU/DIATRIZOATE SODIUM 30 ML SOLUTION ONE (20:33)
[2017-03-30] MEDS: MUPIROCIN 2% OINT 22 GM TUBE NS SCH (22:14)
[2017-03-30] MEDS: SIMVASTATIN 20 MG TABLET GT SCH (22:14)
[2017-03-30] MEDS: LACTOBACILLUS RHAMNOSUS GG 1 EACH CAPSULE PO SCH (22:15)
--- NOTE | 2017-03-30 22:27 | NUR ---
MARS CATHETER INTACT AND FLUSHING WELL. PLACEMENT VERIFIED VY X-RAY. NO RESIDUAL PRIOR TO ADMINISTERING G-TUBE MEDICATIONS. TOLERATED MEDICATION WELL. FLUSHED WITH WATER. ABDOMINAL BINDER IN PLACE. MARS CATHETER CONTINUES TO DRAIN YELLOW URINE.
[2017-03-30] MEDS: ALBUTEROL SULFATE 1.25 MG/3 ML NEBU NEB PRN (23:12)
[2017-03-31] MEDS: GUAIFENESIN/DEXTROMETHORPHAN 5 ML UDC GT PRN (00:27)
[2017-03-31] MEDS: IPRATROPIUM BROMIDE 0.5 MG/2.5 ML NEBU NEB SCH ×4 (00:56→19:17)
[2017-03-31] MEDS: VANCOMYCIN IV 1,500 MG in IV DEXTROSE 5% 500 ML IV SCH (04:12)
[2017-03-31 04:32] VITALS: BP 111/62
[2017-03-31] MEDS: PIPERACILLIN/TAZOBACTAM/D5W 50 ML IV SCH ×4 (06:16→23:52)
--- NOTE | 2017-03-31 06:23 | NUR ---
PATIENT SLEPT WELL LAST NIGHT. TOLERATED G-TUBE INSERTION. G-TUBE FLUSHED AND ABDOMINAL BINDER INTACT. GAVE PRN COUGH MEDICATION SINCE HE WAS COUGHING A LOT AT NIGHT. MARS CATHETER INTACT AND DRAINING URINE. ALL SAFETY MEASURES IMPLEMENTED. 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
[2017-03-31] MEDS: ALBUTEROL SULFATE 1.25 MG/3 ML NEBU NEB PRN ×2 (07:29→22:59)
[2017-03-31] MEDS: ACETYLCYSTEINE 10% 4ML VIAL NEB SCH ×3 (07:29→22:59)
[2017-03-31 08:35] LABS: *BILIRUBIN,URIN NEGATIVE (NEGATIVE); *BLOOD, URINE 2+ (NEGATIVE); *CLARITY,URINE SLIGHTLY CLOUDY (CLEAR); *COLOR,URINE YELLOW (YELLOW); *KETONES,URINE NEGATIVE (NEGATIVE); *PROTEIN,URINE 2+ (NEGATIVE); LEUKOCYTE ESTERASE ,URINE 2+ (NEGATIVE); NITRITE, URINE NEGATIVE (NEGATIVE); PH,URINE 6.5 (5.0-8.0); UGLUCOSE NEGATIVE (NEGATIVE)
[2017-03-31] MEDS: VALPROIC ACID 250 MG/5 ML LIQUID UDC GT SCH ×2 (08:48→17:59)
[2017-03-31] MEDS: MULTIVIT, IRON, MIN NO. 8, FA TABLET GT SCH (08:49)
[2017-03-31] MEDS: ASCORBIC ACID 500 MG TABLET GT SCH (08:49)
[2017-03-31] MEDS: DOXAZOSIN 1 MG TABLET PO SCH ×2 (08:52→17:00)
[2017-03-31] MEDS: QUETIAPINE FUMARATE 25 MG TABLET GT SCH (08:54)
[2017-03-31] MEDS: MUPIROCIN 2% OINT 22 GM TUBE NS SCH ×2 (08:54→21:04)
[2017-03-31] MEDS: CALCIUM CARBONATE 500 MG TABLET GT SCH (08:54)
--- NOTE | 2017-03-31 09:00 | NUR ---
awake but no verbal response, follows commands, noted to have occasional non-productive cough, head of bed elevated, GT in place per KUB, flushed and gave medications, aspiration precautions observed, Dr Colbert here and okayed to continue tube fdg of FiberSource at 70ml/hr, repositioned for comfort with heels off loaded with pillows, bed alarm on
[2017-03-31] MEDS: LACTOBACILLUS RHAMNOSUS GG 1 EACH CAPSULE PO SCH ×2 (09:16→21:03)
[2017-03-31 09:26] LABS: BACTERIA,URINE FEW /HPF (NONE SEEN); SQUAMOUS EPITHELIAL CELL,UR FEW /HPF (NONE SEEN); WBC,URINE TNTC /HPF (0-3)
--- NOTE | 2017-03-31 10:00 | NUR ---
noted that leakage around GT site from medications given earlier, new dsg applied, tube fdg not started.
[2017-03-31 10:43] VITALS: BP 103/56
[2017-03-31] MEDS: IV D5/ 0.9% NACL 1,000 ML IV PRN (11:10)
--- NOTE | 2017-03-31 12:05 | NUR ---
PHARMACY CLINICAL NOTES: VANCOMYCIN DOSING S: Will continue vanco for this 86 YO male with DX of GT site infection (cellulitis) O: BUN/SCR 21/1.1(03/30) ; DOSING WT 108 KG; WBC 17(03/30); TEMP 99.4 A/P: Will continue vanco 1500mg ivpb q19h for predicted vanco trough level of 16 mcg/ml. 2nd dose of this regimen is due tomorrow at 0000. plan to order trough before 4th dose of this regimen (not yet ordered). will continue to monitor renal fxn and levels and adjust dose as necessary
[2017-03-31 15:35] VITALS: BP 101/53
--- NOTE | 2017-03-31 18:00 | NUR ---
no distress noted, repositioned q 2h with heels off loaded with pillows, safety measures maintained, aspiration precautions observed
[2017-03-31] MEDS: RIVAROXABAN 10 MG TABLET PO SCH (18:07)
--- NOTE | 2017-03-31 19:00 | NUR ---
estefanía LERMA inserted #[id number] 10ml balloon GT- KUB with Gastrografin ordered, endorsed to next shift
[2017-03-31 20:08] VITALS: BP 93/51
[2017-03-31] MEDS ORDERED: DIATR MEGLU/DIATRIZOATE SODIUM 30 ML SOLUTION ONE (20:08)
[2017-03-31] MEDS: SIMVASTATIN 20 MG TABLET GT SCH (21:03)
[2017-03-31] MEDS: FIBERSOURCE HN 1000ML LIQUID GT PRN (21:30)
--- NOTE | 2017-03-31 21:30 | NUR ---
KUB WITH GASTROGRAFIN FT CONFIRMED OF G TUBE PLACEMENT,STARTED G TUBE FEEDING WITH FIBER SOURCE HN AT 70 ML/HR,PATIENT TOLERATED FAIRLY WELL,ABD BINDER APPLIED,HOB ELEVATED,NO LEAKING AROUND G TUBE SITE NOTED.
[2017-04-01] MEDS: VANCOMYCIN IV 1,500 MG in IV DEXTROSE 5% 500 ML IV SCH (00:03)
[2017-04-01] MEDS: IPRATROPIUM BROMIDE 0.5 MG/2.5 ML NEBU NEB SCH ×4 (01:34→19:24)
[2017-04-01 06:00] VITALS: BP 101/47
[2017-04-01] MEDS: PIPERACILLIN/TAZOBACTAM/D5W 50 ML IV SCH ×3 (06:00→17:08)
--- NOTE | 2017-04-01 06:00 | NUR ---
patient tolerated g tube feeding well,no leakage,peristoma redness improved,had soft large stool.
[2017-04-01 07:05] LABS: BASOPHILS # (AUTO) 0.1 K/uL (0.0-8.0); BASOPHILS % (AUTO) 0.6 % (0.0-2.0); EOSINOPHILS # (AUTO) 0.6 K/uL (0.0-0.7); HEMATOCRIT 33.5 % (36.7-47.1); HEMOGLOBIN 11.1 g/dL (12.5-16.3); LYMPHOCYTES # (AUTO) 1.5 K/uL (20.0-40.0); MEAN CORPUSCULAR HEMOGLOBIN 32.3 uug (23.8-33.4); MEAN CORPUSCULAR HGB CONC 33 g/dL (32.5-36.3); MEAN CORPUSCULAR VOLUME 97.9 fL (73.0-96.2); MONOCYTES # (AUTO) 1.1 K/uL (2.0-10.0); MONOCYTES % (AUTO) 10.8 % (0.0-11.0); NEUTROPHILS # (AUTO) 6.9 K/uL (1.8-8.9); NEUTROPHILS % (AUTO) 67.6 % (38.5-71.5); PLATELET COUNT (AUTO) 199 K/uL (152-348); RED BLOOD CELL COUNT(AUTO) 3.42 MIL/uL (4.06-5.63); WHITE BLOOD COUNT (AUTO) 10.2 K/uL (3.6-10.2)
[2017-04-01] MEDS: ACETYLCYSTEINE 10% 4ML VIAL NEB SCH ×2 (07:26→13:14)
[2017-04-01] MEDS: ALBUTEROL SULFATE 1.25 MG/3 ML NEBU NEB PRN ×2 (07:26→13:14)
--- NOTE | 2017-04-01 07:30 | NUR ---
Received client in bed asleep but easily arousable. No apparent signs and symptoms of SOB, pain, distress or discomfort. Client HOB at a high fowlers position. Bed at lowest position for safety and call light within reach for assistance
[2017-04-01 07:38] LABS: ALANINE AMINOTRANSFERASE 20 U/L (16-63); ALKALINE PHOSPHATASE 53 U/L (50-136); ASPARTATE AMINOTRANSFERASE 22 U/L (15-37); BILIRUBIN,TOTAL 0.3 mg/dL (0.2-1.0); CARBON DIOXIDE 27 mmol/L (21-32); CHLORIDE 114 mmol/L (98-107); CREATININE 1.2 mg/dL (0.6-1.3); GLUCOSE 106 mg/dL (74-106); MAGNESIUM 2.5 mg/dL (1.8-2.4); PHOSPHOROUS 3.3 mg/dL (2.5-4.9); POTASSIUM 2.9 mmol/L (3.5-5.1); TOTAL PROTEIN, SERUM 6.3 g/dL (6.4-8.2); UREA NITROGEN, BLOOD 26 mg/dL (7-18)
[2017-04-01] MEDS ORDERED: POTASSIUM CHLORIDE 50 ML IV SCH (08:15)
[2017-04-01] MEDS: DOXAZOSIN 1 MG TABLET PO SCH ×2 (09:00→16:37)
[2017-04-01] MEDS: VALPROIC ACID 250 MG/5 ML LIQUID UDC GT SCH ×2 (09:00→17:06)
[2017-04-01] MEDS: MUPIROCIN 2% OINT 22 GM TUBE NS SCH ×2 (09:00→20:34)
[2017-04-01] MEDS: CALCIUM CARBONATE 500 MG TABLET GT SCH (09:01)
[2017-04-01] MEDS: LACTOBACILLUS RHAMNOSUS GG 1 EACH CAPSULE PO SCH ×2 (09:01→20:32)
[2017-04-01] MEDS: MULTIVIT, IRON, MIN NO. 8, FA TABLET GT SCH (09:01)
[2017-04-01] MEDS: ASCORBIC ACID 500 MG TABLET GT SCH (09:01)
[2017-04-01] MEDS: QUETIAPINE FUMARATE 25 MG TABLET GT SCH (09:01)
[2017-04-01 10:40] VITALS: BP 108/52
[2017-04-01] MEDS: POTASSIUM CHLORIDE 10 MEQ in IV NORMAL SALINE 50 ML IV SCH ×3 (10:49→14:15)
--- NOTE | 2017-04-01 13:30 | NUR ---
Noted leaking from GT insertion while changing dressing. Feeding stopped
--- NOTE | 2017-04-01 14:05 | NUR ---
Notified SOLID WASTE DIVISION SUPERVISOR about the GT feeding leaking and that feeding was stopped
--- NOTE | 2017-04-01 14:16 | NUR ---
PHARMACY CLINICAL NOTES: VANCOMYCIN DOSING S: Will continue vanco for this 86 YO male with DX of GT site infection (cellulitis) O: BUN/SCR 26/1.2 ; DOSING WT 108 KG; WBC 6.7; TEMP 97.8 WC + staph pending sens A/P: Will continue same dose of vanco 1500mg ivpb q19h for today. Since srcr is increasing will check vanco random at 1830 before 3rd dose if within therapeutic range, will continue same dose & recheck trough level (not yet ordered) at steady state. will continue to monitor renal fxn and levels and adjust dose as necessary Addendum: 04/01/17 at 1930 by NURA DALTON VANCOMYCIN RANDOM WAS 22.7 AT 1830. WILL HOLD DOSE AND DRAW RANDOM IN AM. WILL FOLLOW THE LEVEL
--- NOTE | 2017-04-01 14:20 | NUR ---
First step mattress installed
[2017-04-01] MEDS: GUAIFENESIN/DEXTROMETHORPHAN 5 ML UDC GT PRN (14:22)
--- NOTE | 2017-04-01 14:51 | NUR ---
Z-guard applied to sacral area and perianal area. Mepliex applied on the sacral area and on bilateral heels, both heels offloading at this timme and client was reposition to his left side, off loading the the right shoulder and right buttock
[2017-04-01 15:16] VITALS: BP 114/63
--- NOTE | 2017-04-01 16:30 | NUR ---
Second call placed to Dr and TEMPLATE STORAGE CLERK in regards to the client's GT leaking. Waiting on a reply
--- NOTE | 2017-04-01 16:45 | NUR ---
GT site dressing changed, minimal leaking area the area
[2017-04-01] MEDS: RIVAROXABAN 10 MG TABLET PO SCH (17:06)
--- NOTE | 2017-04-01 18:09 | NUR ---
ONLINE MERCHANDISING MANAGER consult, continue GT feeding.
--- NOTE | 2017-04-01 18:39 | NUR ---
Client has tolerated GT feeding well. No apparent signs and symptoms of pain, SOB, distress or discomfort. Bed at a semi fowlers position. Client is sleeping at the moment but easily arousable. Blood drawn for Vanco levels at 1820. Client has been compliant with all nursing care
--- NOTE | 2017-04-01 19:35 | NUR ---
PT RECEIVED IN BED, AWAKE. A.OX1. NON-VERBAL. V/S STABLE. IN NO ACUTE DISTRESS. NO S/S OF PAIN AT THIS TIME. IV FOUND TKO AT 5CC/HR. ON TUBE FEEDING WITH FIBERSOURCE RUNNING AT 70CC/HR. TOLERATING WELL. GTUBE SITE CONT TO HAVE LEAKAGE, AWARE. ON FIRST STEP MATTRESS WITH HOB ELEVATED. MARS INTACT AND PATENT. ON RA, TOLERATING WELL. LOW GRADE FEVER NOTED AT 99.4F, COOLING MEASURES INITIATED. WILL ADMIN TYLENOL ORDERED. CONTACT ISOLATION IMPLEMENTED. SAFETY MEASURES IN PLACE. BED ALARM SET. CALL LIGHT WITHIN REACH. Addendum: 04/01/17 at 2223 by IZABELLA GARAY RN PT AFEBRILE. DISREGARD NOTE. BUT C/O HEADACHE. ADMINISTERED TYLENOL ORDERED.
[2017-04-01 20:09] VITALS: BP 123/67
[2017-04-01] MEDS: SIMVASTATIN 20 MG TABLET GT SCH (20:32)
[2017-04-01] MEDS: POTASSIUM CHLORIDE 20 MEQ in IV 1/2NS 1000 ML 1,000 ML IV PRN (20:32)
[2017-04-01] MEDS: ACETAMINOPHEN 325 MG TABLET GT PRN (20:33)
[2017-04-01] MEDS: Z GUARD REMEDY PASTE 57 GM TUBE TOP SCH (20:34)
--- NOTE | 2017-04-01 20:45 | NUR ---
PT FIBERSOURCE COMPLETE. TOLERATING WELL. NO RESIDUAL NOTED. HELD FOR NOW, WILL RESTART IN 1 HOUR.
--- NOTE | 2017-04-01 21:45 | NUR ---
FIBERSOURCE FEEDING RESTARTED AT 70CC/HR. HOB ELEVATED. WILL CONT TO MONITOR.
[2017-04-02] MEDS: ACETYLCYSTEINE 10% 4ML VIAL NEB SCH ×4 (00:46→22:52)
[2017-04-02] MEDS: IPRATROPIUM BROMIDE 0.5 MG/2.5 ML NEBU NEB SCH ×4 (00:46→20:11)
[2017-04-02] MEDS: ALBUTEROL SULFATE 1.25 MG/3 ML NEBU NEB PRN ×3 (00:46→22:51)
[2017-04-02] MEDS: PIPERACILLIN/TAZOBACTAM/D5W 50 ML IV SCH ×4 (01:11→17:31)
[2017-04-02 04:00] VITALS: BP 100/44
--- NOTE | 2017-04-02 06:35 | NUR ---
END OF SHIFT NOTES. PT SLEPT WELL THROUGHOUT SHIFT. IN STABLE CONDITION HEADACHE RESOLVED. IV ABX INFUSED. IVF INFUSING. TUBE FEEDING AT 70CC/HR, TOLERATING WELL. NO RESIDUAL AT THIS TIME. ON FIRST STEP MATTRESS WITH HOB ELEVATED. MARS INTACT AND PATENT. ISOLATION MAINTAINED. SAFETY MAINTAINED. CALL LIGHT WITHIN REACH.
[2017-04-02 06:54] LABS: BASOPHILS % (AUTO) 0.5 % (0.0-2.0); EOSINOPHILS # (AUTO) 0.9 K/uL (0.0-0.7); EOSINOPHILS % (AUTO) 10.3 % (0.0-7.0); HEMATOCRIT 32.5 % (36.7-47.1); HEMOGLOBIN 10.7 g/dL (12.5-16.3); LYMPHOCYTES % (AUTO) 12.1 % (20.5-51.5); MEAN CORPUSCULAR HEMOGLOBIN 32.7 uug (23.8-33.4); MEAN CORPUSCULAR HGB CONC 33 g/dL (32.5-36.3); MEAN CORPUSCULAR VOLUME 99.1 fL (73.0-96.2); MONOCYTES # (AUTO) 0.8 K/uL (2.0-10.0); NEUTROPHILS # (AUTO) 5.6 K/uL (1.8-8.9); NEUTROPHILS % (AUTO) 67.1 % (38.5-71.5); PLATELET COUNT (AUTO) 187 K/uL (152-348); RED BLOOD CELL COUNT(AUTO) 3.28 MIL/uL (4.06-5.63); WHITE BLOOD COUNT (AUTO) 8.3 K/uL (3.6-10.2)
--- NOTE | 2017-04-02 07:30 | NUR ---
Received client in bed sleeping with the HOB at a semi fowlers positions. Bed at lowest position for safety and call light within reach for assistance. GT feeding tolerating well
[2017-04-02 07:38] LABS: ALANINE AMINOTRANSFERASE 20 U/L (16-63); ALKALINE PHOSPHATASE 47 U/L (50-136); ASPARTATE AMINOTRANSFERASE 16 U/L (15-37); BILIRUBIN,TOTAL 0.2 mg/dL (0.2-1.0); CARBON DIOXIDE 27 mmol/L (21-32); CHLORIDE 115 mmol/L (98-107); CREATININE 1.1 mg/dL (0.6-1.3); GLUCOSE 137 mg/dL (74-106); MAGNESIUM 2.4 mg/dL (1.8-2.4); PHOSPHOROUS 3.2 mg/dL (2.5-4.9); POTASSIUM 3.6 mmol/L (3.5-5.1); TOTAL PROTEIN, SERUM 6.1 g/dL (6.4-8.2); UREA NITROGEN, BLOOD 22 mg/dL (7-18); VANCOMYCIN,RANDOM 15.9 ug/mL (18.0-26.0)
--- NOTE | 2017-04-02 08:00 | NUR ---
Decreased fluids running at 100 mls/hr due to feeding. Decreased to 5mls to TKO.
[2017-04-02] MEDS: DOXAZOSIN 1 MG TABLET PO SCH ×2 (08:13→17:32)
--- NOTE | 2017-04-02 09:15 | NUR ---
GT dressing changed, noted with leakage from site
[2017-04-02] MEDS: VALPROIC ACID 250 MG/5 ML LIQUID UDC GT SCH ×2 (09:30→17:31)
[2017-04-02] MEDS: Z GUARD REMEDY PASTE 57 GM TUBE TOP SCH ×2 (09:31→21:13)
[2017-04-02] MEDS: ASCORBIC ACID 500 MG TABLET GT SCH (09:31)
[2017-04-02] MEDS: MULTIVIT, IRON, MIN NO. 8, FA TABLET GT SCH (09:31)
[2017-04-02] MEDS: QUETIAPINE FUMARATE 25 MG TABLET GT SCH (09:31)
[2017-04-02] MEDS: LACTOBACILLUS RHAMNOSUS GG 1 EACH CAPSULE PO SCH ×2 (09:31→21:14)
[2017-04-02] MEDS: CALCIUM CARBONATE 500 MG TABLET GT SCH (09:31)
[2017-04-02] MEDS: MUPIROCIN 2% OINT 22 GM TUBE NS SCH ×2 (09:32→21:13)
[2017-04-02] MEDS ORDERED: VANCOMYCIN IV 1,500 MG in IV DEXTROSE 5% 500 ML IV ONE (11:00)
[2017-04-02 11:01] VITALS: BP 101/52
--- NOTE | 2017-04-02 11:49 | NUR ---
WOUND CARE CONSULT: PT PRESENTS WITH RASH TO BUTTOCKS AND PERINEUM WITH SOME EXCORIATED AREAS, PRESENT ON ADMISSION. PT IS INCONTINENT. PT ON FIRST STEP MATTRESS. PT FOLLOWED BY SURGICAL TEAM FOR G TUBE SITE. DEFER TO SURGICAL TEAM FOR G TUBE. ALL SKIN PROTECTION MEASURES DISCUSSED WITH NURSING STAFF. WILL SEE PRN. HECK IN AGREEMENT WITH PLAN OF CARE.
--- NOTE | 2017-04-02 13:45 | NUR ---
Family member by the name of Sandra came to visit the client by bedside
[2017-04-02] MEDS: CLOTRIMAZOLE 1% CREAM 30 GM TUBE TOP SCH ×2 (13:51→17:32)
--- NOTE | 2017-04-02 15:05 | NUR ---
PHARMACY CLINICAL NOTES: VANCOMYCIN DOSING S: Will continue vanco for this 86 YO male with DX of GT site infection (cellulitis) O: BUN/SCR 22/1.1 ; DOSING WT 108 KG; WBC 8.3 TEMP 98.7 WC + staph pending sens Random: 15.9 today with am labs A/P: As renal function became unstable and trough before 3rd dose of scheduled regimen was high, and pt is obese and vanco may not be fully distributed yet, will dose per level for now until renal function remains stable. Based on random today, dosed another vanco 1500mg today x 1 at 1100. Random ordered with am labs tomorrow. Will follow and dose per level until renal fxn remains stable.
[2017-04-02 15:20] VITALS: BP 108/64
[2017-04-02] MEDS: RIVAROXABAN 10 MG TABLET PO SCH (17:33)
--- NOTE | 2017-04-02 17:43 | NUR ---
GT dressing changed, noted with leakage. GT feeding stopped at 1730 and to resume at 2130 HRS for 20 HRS. GT feeding tolerating well.
--- NOTE | 2017-04-02 19:00 | NUR ---
Client in bed awake with the HOB at high fowlers position. No apparent signs and symptoms of SOB, pain, distress or discomfort. Seen by GI STAIR BUILDER in regard to leakage from GI leaking. Tolerated medication and feeding throughout the day.
[2017-04-02 20:00] VITALS: BP 114/58
[2017-04-02] MEDS: SIMVASTATIN 20 MG TABLET GT SCH (21:14)
--- NOTE | 2017-04-02 21:40 | NUR ---
Fibersource feeding restarted @70cc/hr. Will continue to monitor
--- NOTE | 2017-04-02 23:00 | NUR ---
HANDS OFF REPORT RECEIVED FROM ANDREI COLMENARES. PT IV INTACT AND PATENT, PT AWAKE ALERTX 1. BED ALARM ON AND IN LOW POSITION . SAFETY AND COMFORT PROVIDED. WILL CONTINUE TO MONITOR.
--- NOTE | 2017-04-03 00:30 | NUR ---
PICTURE OF THE STOMA FOR G-TUBE TAKEN AND PUT IN CHART.
[2017-04-03] MEDS: PIPERACILLIN/TAZOBACTAM/D5W 50 ML IV SCH ×5 (00:37→23:31)
[2017-04-03] MEDS: IPRATROPIUM BROMIDE 0.5 MG/2.5 ML NEBU NEB SCH ×4 (01:26→19:21)
[2017-04-03] MEDS: POTASSIUM CHLORIDE 20 MEQ in IV 1/2NS 1000 ML 1,000 ML IV PRN ×2 (05:00→23:31)
[2017-04-03 06:51] VITALS: BP 114/50
--- NOTE | 2017-04-03 06:55 | NUR ---
PT SHOWS NO SIGNS OF DISTRESS. PT VITAL SIGNS WITHIN NORMAL LIMIT. PT IV INTACT AND PATENT. PT G-TUBE AND MARS INTACT. BED ALARM ON AND IN LOW POSITION. PRESCRIBED MEDICATION GIVEN TO THE PT. PT TOLERATED WELL THE MEDICATION. SAFETY AND COMFORT PROVIDED.
[2017-04-03] MEDS: ACETYLCYSTEINE 10% 4ML VIAL NEB SCH ×3 (07:04→22:55)
--- NOTE | 2017-04-03 07:45 | NUR ---
Received patient resting in bed, in no distress. GT feeding off since 6am, will turn on GTF at 0800. GT site leaking, redchava noted, aware. Will continue to monitor. Addendum: 04/03/17 at 1138 by MEG COOPER RN Add: maladorous noted on GT site.
[2017-04-03] MEDS: FIBERSOURCE HN 1000ML LIQUID GT PRN (08:00)
[2017-04-03] MEDS: VALPROIC ACID 250 MG/5 ML LIQUID UDC GT SCH ×2 (08:16→16:40)
[2017-04-03] MEDS: MULTIVIT, IRON, MIN NO. 8, FA TABLET GT SCH (08:16)
[2017-04-03] MEDS: CALCIUM CARBONATE 500 MG TABLET GT SCH (08:16)
[2017-04-03] MEDS: LACTOBACILLUS RHAMNOSUS GG 1 EACH CAPSULE PO SCH ×2 (08:16→20:40)
[2017-04-03] MEDS: QUETIAPINE FUMARATE 25 MG TABLET GT SCH (08:16)
[2017-04-03] MEDS: ASCORBIC ACID 500 MG TABLET GT SCH (08:17)
[2017-04-03] MEDS: Z GUARD REMEDY PASTE 57 GM TUBE TOP SCH ×2 (08:17→20:41)
[2017-04-03] MEDS: CLOTRIMAZOLE 1% CREAM 30 GM TUBE TOP SCH ×2 (08:17→16:55)
[2017-04-03] MEDS: MUPIROCIN 2% OINT 22 GM TUBE NS SCH ×2 (08:18→20:42)
[2017-04-03] MEDS: DOXAZOSIN 1 MG TABLET PO SCH ×2 (08:27→16:40)
[2017-04-03] MEDS ORDERED: VANCOMYCIN IV 1,500 MG in IV DEXTROSE 5% 500 ML IV ONE (10:00)
[2017-04-03] MEDS: ACETAMINOPHEN 325 MG TABLET GT PRN (10:20)
[2017-04-03 11:38] VITALS: BP 114/58
--- NOTE | 2017-04-03 11:43 | NUR ---
PHARMACY CLINICAL NOTES: VANCOMYCIN DOSING S: Will continue vanco for this 86 YO male with DX of GT site infection (cellulitis) O: BUN/SCR 22/1.1 (04/02) ; DOSING WT 108 KG; WBC 8.3 (04/02) TEMP 99.2 WC + staph pending sens Random: 18.1 today with am labs A/P: As renal function became unstable, will continue to dose by fall of level for now until renal function becomes stable. Based on random today, dosed another vanco 1500mg today x 1 at 1000. Random ordered with am labs tomorrow. Will follow and dose per level until renal fxn remains stable.
[2017-04-03] MEDS: ALBUTEROL SULFATE 1.25 MG/3 ML NEBU NEB PRN ×2 (14:43→22:55)
[2017-04-03 15:21] VITALS: BP 132/64
[2017-04-03] MEDS: RIVAROXABAN 10 MG TABLET PO SCH (17:02)
--- NOTE | 2017-04-03 17:15 | NUR ---
Patient's GT site noted to have moderate leakage from feeding, minimal residual amount 15cc, temporarily stopped feeding for now, MD notified. MD's plan for surgery Friday. Pt is in no distress, no nausea/vomiting/diarrhea.
--- NOTE | 2017-04-03 18:00 | NUR ---
Patient awake, resting in bed, in no distress. GT site with leakage, redness, malodorous noted, MD aware. Replaced GT dressing frequently. GT placement checked, bowel sounds present, GT flushed per protocol, minimal residual 15cc noted. Pt is NPO, oral care provided, suction as needed, HOB elevated, aspiration precaution. Wound treatment done as ordered, repositioned for comfort. IVF running, no infiltration noted. Nobles cath intact, draining yellow urine. Patient kept clean/dry. Safety measures in place, will continue to monitor.
--- NOTE | 2017-04-03 18:30 | NUR ---
Patient seen by MARIA GUADALUPE Aparicio. GT feeding stopped as ordered.
--- NOTE | 2017-04-03 18:49 | NUR ---
Continue GT feeding as ordered. GT site protected from leakage to surrounding skin area with ostomy bag. Will endorse to lieutenant shift supervisor RN. Addendum: 04/03/17 at 1902 by MEG COOPER RN Add: interventions above done as ordered pending planned surgery.
--- NOTE | 2017-04-03 19:45 | NUR ---
PT GTUBE SITE HAS NO DRESSING BUT WAS PLACE WITH OSTOMY. PER THE DAYSHIFT NURSE WAS AWARE. WILL CONTINUE TO MONITOR.
--- NOTE | 2017-04-03 19:45 | NUR ---
RECEIVED PT AWAKE ON BED. PT SHOS NO SIGNS OF DISTRESS. GT,IV AND MARS INTACT AND FUNCTIONING. WILL CONTINUE TO MONITOR AND CHANGE THE GT DRESSING FREQUENTLY. SAFETY AND COMFORT PROVIDED.
[2017-04-03 20:11] VITALS: BP 106/64
[2017-04-03] MEDS: SIMVASTATIN 20 MG TABLET GT SCH (20:40)
[2017-04-04] MEDS: IPRATROPIUM BROMIDE 0.5 MG/2.5 ML NEBU NEB SCH ×2 (00:57→07:33)
[2017-04-04 04:33] VITALS: BP 131/59
[2017-04-04] MEDS: PIPERACILLIN/TAZOBACTAM/D5W 50 ML IV SCH (05:14)
--- NOTE | 2017-04-04 06:32 | NUR ---
PT GTUBE IS LEAKING. COLOSTOMY BAG WAS IN PLACED. PT SKIN IS RAW SO OLD COLOSTOMY BAG REMOVED FOR NOW. CLEANSE WITH NORMAL SALINE AND APPLIED PRESSURE DRESSING AND PUT BACTROBAN OINTMENT.COVERED IT WITH 4X4 GAUZE FOR GTUBE, COVER ALSO WITH ABDOMINAL PAD AND SECURED WITH ABDOMINALBINDER. DONE THE PRESSURE DRESSING WITH ANOTHER RN RUSS TOBIAS. G-TUBE FEEDING HELD AFTER 20 HRS AT 4AM. TO RESUME ON 8AM .IV SITE CHANGED TO LEFT AC.PT SHOWS NO SIGNS OF DISTRESS. PT VITAL SIGNS ARE STABLE. PT TOLERATED THE FEEDING AND MEDICATION. REPOSITIONED THE PT. SAFETY AND COMFORT PROVIDED.WILL ENDORSE TO DAYSHIFT NURSE ABOUT THE LEAKAGE OF GTUBE.
[2017-04-04] MEDS: ALBUTEROL SULFATE 1.25 MG/3 ML NEBU NEB PRN (07:33)
[2017-04-04] MEDS: ACETYLCYSTEINE 10% 4ML VIAL NEB SCH (07:34)
[2017-04-04] MEDS ORDERED: MUPI22OI2 NS (07:45)
[2017-04-04] MEDS ORDERED: RXVAN XX (07:45)
[2017-04-04] MEDS ORDERED: LACT1CAP57 PO (07:45)
[2017-04-04] MEDS ORDERED: CLOT30CR24 TOP (07:45)
[2017-04-04] MEDS ORDERED: Multivit, Iron, Min No. 8, Fa GT (07:45)
[2017-04-04] MEDS ORDERED: MENT71OI TOP (07:45)
[2017-04-04] MEDS ORDERED: VANC1.5P16 IV (07:46)
--- NOTE | 2017-04-04 08:00 | NUR ---
Patient discharged to [facility] as ordered. Addendum: 04/04/17 at 1029 by MEG COOPER RN kenney Villeda.
[2017-04-04] MEDS: VALPROIC ACID 250 MG/5 ML LIQUID UDC GT SCH (08:06)
[2017-04-04] MEDS: ASCORBIC ACID 500 MG TABLET GT SCH (08:07)
[2017-04-04] MEDS: QUETIAPINE FUMARATE 25 MG TABLET GT SCH (08:07)
[2017-04-04] MEDS: MULTIVIT, IRON, MIN NO. 8, FA TABLET GT SCH (08:07)
[2017-04-04] MEDS: CALCIUM CARBONATE 500 MG TABLET GT SCH (08:07)
[2017-04-04] MEDS: LACTOBACILLUS RHAMNOSUS GG 1 EACH CAPSULE PO SCH (08:07)
[2017-04-04] MEDS: MUPIROCIN 2% OINT 22 GM TUBE NS SCH (08:07)
[2017-04-04] MEDS: CLOTRIMAZOLE 1% CREAM 30 GM TUBE TOP SCH (08:08)
[2017-04-04] MEDS: Z GUARD REMEDY PASTE 57 GM TUBE TOP SCH (08:08)
[2017-04-04] MEDS: DOXAZOSIN 1 MG TABLET PO SCH (08:11)
[2017-04-04 08:12] VITALS: BP 115/52
[2017-04-04 08:39] LABS: ALANINE AMINOTRANSFERASE 18 U/L (16-63); ALKALINE PHOSPHATASE 49 U/L (50-136); ASPARTATE AMINOTRANSFERASE 16 U/L (15-37); BILIRUBIN,TOTAL 0.4 mg/dL (0.2-1.0); CARBON DIOXIDE 27 mmol/L (21-32); CHLORIDE 113 mmol/L (98-107); CREATININE 1.2 mg/dL (0.6-1.3); GLUCOSE 96 mg/dL (74-106); MAGNESIUM 2.3 mg/dL (1.8-2.4); PHOSPHOROUS 3.9 mg/dL (2.5-4.9); POTASSIUM 3.7 mmol/L (3.5-5.1); TOTAL PROTEIN, SERUM 6.6 g/dL (6.4-8.2); UREA NITROGEN, BLOOD 16 mg/dL (7-18)
[2017-04-04 08:48] LABS: BASOPHILS % (AUTO) 0.3 % (0.0-2.0); EOSINOPHILS # (AUTO) 0.6 K/uL (0.0-0.7); EOSINOPHILS % (AUTO) 6.2 % (0.0-7.0); HEMOGLOBIN 10.8 g/dL (12.5-16.3); LYMPHOCYTES # (AUTO) 1.4 K/uL (20.0-40.0); LYMPHOCYTES % (AUTO) 15.4 % (20.5-51.5); MEAN CORPUSCULAR HGB CONC 33 g/dL (32.5-36.3); MONOCYTES # (AUTO) 0.9 K/uL (2.0-10.0); MONOCYTES % (AUTO) 10.4 % (0.0-11.0); NEUTROPHILS % (AUTO) 67.7 % (38.5-71.5); PLATELET COUNT (AUTO) 176 K/uL (152-348); RED BLOOD CELL COUNT(AUTO) 3.37 MIL/uL (4.06-5.63); WHITE BLOOD COUNT (AUTO) 8.9 K/uL (3.6-10.2)
--- NOTE | 2017-04-04 10:10 | NUR ---
Patient transported to [facility]. Report given to DARRIAN Faustin. Patient is alert, in no distress. GT reinforced with dressing and abdominal binder. Nobles cath patent, draining yellow urine, bag emptied. IV access removed, ID band removed. Photos taken and placed in chart. Belonging list done. Discharge/transfer papers given to the paramedics. Patient left the unit via gurney.
== END 2017-04-04 09:55 | DRG 394 ==
LOC: ER 08:27 → MED 10:23
PROVIDERS: ADMIT Internal Medicine Nephrology; ATTEND Internal Medicine Nephrology
PROC: 0D20XUZ Change Feeding Device in Upper Intestinal Tract, External Approach (ICD-10-PCS; principal; 2017-03-30)
PROC: 0D20XUZ Change Feeding Device in Upper Intestinal Tract, External Approach (ICD-10-PCS; 2017-03-31)
DX: K94.22 Gastrostomy infection (principal); K94.23 Gastrostomy malfunction; L03.311 Cellulitis of abdominal wall; E88.09 Other disorders of plasma-protein metabolism, not elsewhere classified; E83.51 Hypocalcemia; R13.10 Dysphagia, unspecified; N39.0 Urinary tract infection, site not specified; G30.9 Alzheimer's disease, unspecified; F02.80 Dementia in other diseases classified elsewhere, unspecified severity, without behavioral disturbance, psychotic disturbance, mood disturbance, and anxiety; Y84.6 Urinary catheterization as the cause of abnormal reaction of the patient, or of later complication, without mention of misadventure at the time of the procedure; Y73.8 Miscellaneous gastroenterology and urology devices associated with adverse incidents, not elsewhere classified; Y92.129 Unspecified place in nursing home as the place of occurrence of the external cause; E78.5 Hyperlipidemia, unspecified; I25.10 Atherosclerotic heart disease of native coronary artery without angina pectoris; Z86.711 Personal history of pulmonary embolism; Z79.01 Long term (current) use of anticoagulants; B95.62 Methicillin resistant Staphylococcus aureus infection as the cause of diseases classified elsewhere; K21.9 Gastro-esophageal reflux disease without esophagitis; Z79.899 Other long term (current) drug therapy
CPT/HCPCS: 36415; 71045; 74018; 74150; 83735; 84100; 85025; 87070; 87077; 87086; 93005; 94640; 94664; A4217; A4663; J2543; J3370; J3480; J3490; J3590; J7042; J7050; J7060; Q9963

== ENCOUNTER 2017-06-05 08:49 | Emergency (ER) | payer MEDICARE, OTHER, MEDICAID ==
[~2017-06-05] VITALS: Ht 172.7 cm; Wt 99.8 kg
[~2017-06-05 08:49] MED LIST changes: +CLOT30CR24 TOP; +LACT1CAP57 PO; +MENT71OI TOP; +MUPI22OI2 NS; +Multivit, Iron, Min No. 8, Fa GT; +RXVAN XX; +VANC1.5P16 IV
--- NOTE | 2017-06-05 09:00 | NUR ---
dr. bustamante placed the g-tube,standard balloon, gaby thorpe, 20 f, 6.7 mm in the stoma without difficulty. Addendum: 06/05/17 at 0924 by ELIZABETH g-tubed flushed easily without resistance.
[2017-06-05] MEDS ORDERED: DIATR MEGLU/DIATRIZOATE SODIUM 120 ML BOTTLE ONE (09:05)
[2017-06-05] MEDS ORDERED: DIATR MEGLU/DIATRIZOATE SODIUM 120 ML BOTTLE PO ONE (09:15)
--- NOTE | 2017-06-05 09:31 | NUR ---
called kar to take the pt back to [facility].
--- NOTE | 2017-06-05 09:32 | NUR ---
called [facility] to let them know the pt is coming back
[2017-06-05 10:24] VITALS: BP 123/80
--- NOTE | 2017-06-05 10:26 | NUR ---
Patient discharged to home in stable conditon. Written and verbal after care instructions given to ambulanz crew to be handed to nsg at [facility].
== END 2017-06-05 10:37 | disposition home or self-care (01) ==
LOC: ER 08:50
DX: Z43.1 Encounter for attention to gastrostomy (principal); I25.10 Atherosclerotic heart disease of native coronary artery without angina pectoris; I10 Essential (primary) hypertension; K21.9 Gastro-esophageal reflux disease without esophagitis; E78.5 Hyperlipidemia, unspecified; I25.2 Old myocardial infarction; Z79.2 Long term (current) use of antibiotics; Z79.899 Other long term (current) drug therapy
CPT/HCPCS: 74018; A4663; Q9963